=== PATIENT | female | born 1980 | race Two or more races ===

== ENCOUNTER 2017-02-07 13:46 | Emergency (ER) | payer OTHER ==
[2017-02-07 14:19] LABS: #Eosinphils 0.1 thou/uL (0.0-0.7); #Lymphocytes 2.8 thou/uL (1.20-3.40); #Monocytes 0.4 thou/uL (0.11-0.59); #Neutrophils 4.4 thou/uL (1.40-6.50); %Basophils 0.6 % (0.0-1.0); %Eosinophils 1.6 % (0.0-10.0); %Lymphocytes 35.9 % (21.0-51.0); %Monocytes 4.6 % (0.0-10.0); Hematocrit 40.7 % (36.0-47.0); Mean Platelet Volume 7.6 fL (7.4-10.4); Red Blood Cell (RBC) Count 4.39 mill/uL (4.20-5.40); White Blood Cell (WBC) Count 7.7 thou/uL (4.8-10.8)
[2017-02-07 14:41] LABS: ALT (SGPT) 18 U/L (8-55); AST (SGOT) 13 U/L (5-34); Alkaline Phosphatase 39 U/L (40-150); Anion Gap 16 mmol/L (10-20); BUN (Urea Nitrogen) 15 mg/dL (7.0-18.7); Bilirubin, Total 0.2 mg/dL (0.2-1.2); CK (CPK) 134 U/L (29-168); Calc. Creatinine Clearance 0 mL/min (70-130); Calcium 9.5 mg/dL (7.8-10.44); Carbon Dioxide 24 mmol/L (22-29); Chloride 103 mmol/L (98-107); Estimated GFR-MDRD 81; Globulin 3.2 g/dL (2.4-3.5); Protein, Total 7.1 g/dL (6.0-8.3)
[2017-02-07 14:44] LABS: Troponin I Less than 0.010 ng/mL (< 0.028)
--- NOTE | 2017-02-07 17:20 | RAD ---
AP CHEST: History: Chest pain, shortness of breath. Date: 02-07-17 Comparison: 11-16-16 FINDINGS: The lungs are well aerated. No evidence of active intrathoracic disease is seen. No evidence of effu sions, pneumonia, or pneumothorax seen. IMPRESSION: Unremarkable AP chest. POS: [facility]
== END 2017-02-07 16:14 | disposition home or self-care (01) ==
LOC: ERS 13:46
DX: R07.2 Precordial pain (principal); E11.9 Type 2 diabetes mellitus without complications; I10 Essential (primary) hypertension; Z86.73 Personal history of transient ischemic attack (TIA), and cerebral infarction without residual deficits
CPT/HCPCS: 71010; 80053; 82550; 82553; 83880; 84484; 85025; 85379; 93005

== ENCOUNTER 2017-02-22 22:09 | Emergency (ER) | payer OTHER, SELFPAY ==
[2017-02-22] MEDS ORDERED: Ibuprofen 800 MG TAB ONE (23:02)
== END 2017-02-22 23:15 | disposition home or self-care (01) ==
LOC: ERS 22:09
DX: M79.652 Pain in left thigh (principal); E11.9 Type 2 diabetes mellitus without complications; I10 Essential (primary) hypertension; Z86.73 Personal history of transient ischemic attack (TIA), and cerebral infarction without residual deficits; Z79.84 Long term (current) use of oral hypoglycemic drugs; Z79.899 Other long term (current) drug therapy
CPT/HCPCS: 99283

== ENCOUNTER 2017-03-04 17:39 | Emergency (ER) | payer SELFPAY ==
--- NOTE | 2017-03-04 20:20 | ULT ---
VENOUS DOPPLER ULTRASOUND OF THE LEFT LOWER EXTREMITY: HISTORY: Edema in the left lower extremity, anterolateral aspect of the left thigh. TECHNIQUE: Hart scale ultrasound with color-flow and spectral Doppler imaging of the deep venous system of the left lower extremity was performed. FINDINGS: There is good flow, compression, and augmentation noted in the left common femoral, femoral, deep fe moral, popliteal, posterior tibial, and greater saphenous veins. IMPRESSION: No evidence of deep venous thrombosis in the left lower extremity. POS: [facility]
== END 2017-03-04 20:31 | disposition home or self-care (01) ==
LOC: SCSER 17:39
DX: I80.3 Phlebitis and thrombophlebitis of lower extremities, unspecified (principal); Z86.73 Personal history of transient ischemic attack (TIA), and cerebral infarction without residual deficits; E11.9 Type 2 diabetes mellitus without complications; I10 Essential (primary) hypertension

== ENCOUNTER 2017-04-26 21:51 | Emergency (ER) | payer SELFPAY ==
[2017-04-26 22:27] LABS: #Eosinphils 0.1 thou/uL (0.0-0.7); #Lymphocytes 3.9 thou/uL (1.20-3.40); #Monocytes 0.6 thou/uL (0.11-0.59); #Neutrophils 5.3 thou/uL (1.40-6.50); %Basophils 0.2 % (0.0-1.0); %Eosinophils 1.3 % (0.0-10.0); %Lymphocytes 39.6 % (21.0-51.0); %Monocytes 5.6 % (0.0-10.0); Hematocrit 40.4 % (36.0-47.0); Mean Platelet Volume 7.4 fL (7.4-10.4); Red Blood Cell (RBC) Count 4.47 mill/uL (4.20-5.40); White Blood Cell (WBC) Count 9.9 thou/uL (4.8-10.8)
[2017-04-26 22:49] LABS: ALT (SGPT) 18 U/L (8-55); AST (SGOT) 12 U/L (5-34); Alkaline Phosphatase 42 U/L (40-150); Anion Gap 13 mmol/L (10-20); BUN (Urea Nitrogen) 18 mg/dL (7.0-18.7); Bilirubin, Total 0.4 mg/dL (0.2-1.2); Calc. Creatinine Clearance 0 mL/min (70-130); Calcium 9.8 mg/dL (7.8-10.44); Carbon Dioxide 28 mmol/L (22-29); Chloride 98 mmol/L (98-107); Estimated GFR-MDRD 76; Globulin 3.1 g/dL (2.4-3.5); Protein, Total 7.1 g/dL (6.0-8.3)
--- NOTE | 2017-04-26 22:49 | RAD ---
AP CHEST: History: Chest pain. FINDINGS: The lungs are well aerated. No evidence of active intrathoracic disease is seen. No evidence of effus ions, pneumonia or pneumothorax seen. IMPRESSION: Unremarkable AP chest. POS: [facility]
[2017-04-26 22:54] LABS: Troponin I Less than 0.010 ng/mL (< 0.028)
== END 2017-04-27 00:47 | disposition home or self-care (01) ==
LOC: ERS 21:51
DX: R07.89 Other chest pain (principal); E11.9 Type 2 diabetes mellitus without complications; I10 Essential (primary) hypertension; Z86.73 Personal history of transient ischemic attack (TIA), and cerebral infarction without residual deficits
CPT/HCPCS: 36415; 71010; 80053; 82553; 84484; 85025; 93005

== ENCOUNTER 2017-07-25 10:54 | Emergency (ER) | payer OTHER | END 2017-07-25 11:29 | disposition home or self-care (01) | LOC: ERS 10:54 | DX: S39.012A Strain of muscle, fascia and tendon of lower back, initial encounter (principal); E11.9 Type 2 diabetes mellitus without complications; I10 Essential (primary) hypertension; Z86.73 Personal history of transient ischemic attack (TIA), and cerebral infarction without residual deficits; X58.XXXA Exposure to other specified factors, initial encounter | CPT/HCPCS: 99283 ==

== ENCOUNTER 2017-08-06 14:48 | Emergency (ER) | payer OTHER | END 2017-08-06 15:38 | disposition home or self-care (01) | LOC: SCSER 14:48 | DX: K20.9 Esophagitis, unspecified (principal); E11.9 Type 2 diabetes mellitus without complications; I10 Essential (primary) hypertension; F17.210 Nicotine dependence, cigarettes, uncomplicated | CPT/HCPCS: 99284 ==

== ENCOUNTER 2017-08-17 07:47 | Emergency (ER) | payer OTHER ==
[2017-08-17] MEDS ORDERED: Ketorolac Tromethamine 60 MG/2 ML VIAL ONE (08:15)
[2017-08-17 08:19] LABS: Bilirubin Negative (Negative); Blood, Urine Negative (Negative); Clarity CLEAR (Clear); Glucose, Urine (Dipstick) >=1000 mg/dL (Negative); Leukocyte Small (Negative); Nitrite Negative (Negative); Protein, Urine (Dipstick) Negative (Neg-Trace); Specific Gravity, Urine 1.034 (1.002-1.036); pH, Urine 5.5 (5.0-9.0)
[2017-08-17 08:29] LABS: RBC/HPF 0-3 HPF (0-3)
[2017-08-17 08:30] LABS: Bacteria/HPF None Seen HPF (None Seen); Hyaline Casts/LPF 0-3 HYALINE CAST LPF (0-3 Hyaline)
--- NOTE | 2017-08-17 08:48 | RAD ---
LUMBAR SPINE THREE VIEWS: History: Back pain. FINDINGS: There is loss of disc space at L4-5. Degenerative osteophytes are also prominent anteriorly at L4-5. The other disc spaces are preserved. The lumbar vertebrae maintain height and alignment. No evidence of spondylolisthesis or spondylolysis. Moderate facet hypertrophy is noted. IMPRESSION: Degenerative changes most prominent at L4-5 with loss of disc space and hypertrophic spurring at this level. Facet hypertrophy is noted. POS: [facility]
[2017-08-18 01:51] LABS: Chlamydia by PCR Not Detected (NotDetected); GC by PCR Not Detected (NotDetected)
== END 2017-08-17 10:02 | disposition home or self-care (01) ==
LOC: ERS 07:47
DX: S39.012A Strain of muscle, fascia and tendon of lower back, initial encounter (principal); E11.9 Type 2 diabetes mellitus without complications; I10 Essential (primary) hypertension; F17.210 Nicotine dependence, cigarettes, uncomplicated; Z79.899 Other long term (current) drug therapy; Z79.84 Long term (current) use of oral hypoglycemic drugs; Z86.73 Personal history of transient ischemic attack (TIA), and cerebral infarction without residual deficits; X58.XXXA Exposure to other specified factors, initial encounter
CPT/HCPCS: 72100; 81003; 81015; 87077; 87086; 87480; 87491; 87510; 87591; 87660; 96372; J1885

== ENCOUNTER 2018-01-18 17:10 | Emergency (ER) | payer OTHER | END 2018-01-18 18:21 | disposition home or self-care (01) | LOC: ERS 17:10 | DX: B34.9 Viral infection, unspecified (principal); Z86.73 Personal history of transient ischemic attack (TIA), and cerebral infarction without residual deficits; E11.9 Type 2 diabetes mellitus without complications; I10 Essential (primary) hypertension; F17.210 Nicotine dependence, cigarettes, uncomplicated | CPT/HCPCS: 87081; 87430; 87804; 99283 ==

== ENCOUNTER 2018-03-05 19:17 | Emergency (ER) | payer OTHER, SELFPAY ==
[2018-03-05] MEDS ORDERED: Lidocaine 1% (PF) 30 ML VIAL ONE (20:03)
[2018-03-05] MEDS ORDERED: Bacitracin Zinc 1 Packet ONE (20:27)
== END 2018-03-05 20:35 | disposition home or self-care (01) ==
LOC: ERS 19:17
DX: L02.211 Cutaneous abscess of abdominal wall (principal); L03.311 Cellulitis of abdominal wall; Z86.73 Personal history of transient ischemic attack (TIA), and cerebral infarction without residual deficits; E11.9 Type 2 diabetes mellitus without complications; I10 Essential (primary) hypertension; F17.210 Nicotine dependence, cigarettes, uncomplicated; Z79.84 Long term (current) use of oral hypoglycemic drugs; Z79.899 Other long term (current) drug therapy; Z71.6 Tobacco abuse counseling
CPT/HCPCS: 10060; 87070; 87077; 87186; 87205; 99406; J2001

== ENCOUNTER 2018-03-08 18:14 | Emergency (ER) | payer SELFPAY | END 2018-03-08 18:47 | disposition home or self-care (01) | LOC: ERS 18:14 | DX: Z48.817 Encounter for surgical aftercare following surgery on the skin and subcutaneous tissue (principal); E11.9 Type 2 diabetes mellitus without complications; I10 Essential (primary) hypertension; F17.210 Nicotine dependence, cigarettes, uncomplicated; Z79.84 Long term (current) use of oral hypoglycemic drugs; Z79.899 Other long term (current) drug therapy | CPT/HCPCS: 99282 ==

== ENCOUNTER 2018-04-09 21:04 | Emergency (ER) | payer SELFPAY ==
[2018-04-09 22:16] LABS: #Eosinphils 0.1 thou/uL (0.0-0.7); #Lymphocytes 2.7 thou/uL (1.20-3.40); #Monocytes 0.4 thou/uL (0.11-0.59); #Neutrophils 2.7 thou/uL (1.40-6.50); %Basophils 0.6 % (0.0-1.0); %Eosinophils 2.2 % (0.0-10.0); %Monocytes 6.1 % (0.0-10.0); %Neutrophils 45.1 % (42.0-75.0); Hemoglobin 13.1 g/dL (12.0-16.0); Mean Corpuscular HGB CONC 35.9 g/dL (32.0-36.0); Mean Corpuscular Hemoglobin 31.5 pg (27.0-31.0); Mean Corpuscular Volume 87.8 fL (78.0-98.0); Mean Platelet Volume 7.5 fL (7.4-10.4); Platelet Count 280 thou/uL (130-400); RBC Distribution Width 11.8 % (11.5-14.5); Red Blood Cell (RBC) Count 4.15 mill/uL (4.20-5.40); White Blood Cell (WBC) Count 5.9 thou/uL (4.8-10.8)
[2018-04-09 22:38] LABS: ALT (SGPT) 19 U/L (8-55); AST (SGOT) 12 U/L (5-34); Albumin 3.6 g/dL (3.5-5.0); Alkaline Phosphatase 42 U/L (40-150); Anion Gap 15 mmol/L (10-20); BUN (Urea Nitrogen) 10 mg/dL (7.0-18.7); Bilirubin, Total 0.2 mg/dL (0.2-1.2); CK (CPK) 137 U/L (29-168); Calc. Creatinine Clearance 0 mL/min (70-130); Calcium 8.5 mg/dL (7.8-10.44); Carbon Dioxide 23 mmol/L (22-29); Chloride 101 mmol/L (98-107); Estimated GFR-MDRD 78; Globulin 2.7 g/dL (2.4-3.5); Glucose 371 mg/dL (70-105); Lipase 51 U/L (8-78); Potassium 3.6 mmol/L (3.5-5.1); Protein, Total 6.3 g/dL (6.0-8.3); Sodium 135 mmol/L (136-145)
[2018-04-09] MEDS ORDERED: Nitroglycerin 2% Ointment 1 INCH/1 GM Packet ONE (22:39)
[2018-04-09] MEDS ORDERED: Acetaminophen 500 MG TAB ONE (22:39)
[2018-04-09 22:42] LABS: Troponin I Less than 0.010 ng/mL (< 0.028)
--- NOTE | 2018-04-09 22:52 | RAD ---
CHEST ONE VIEW: 04/09/18 COMPARISON: 04/26/17 HISTORY: Chest pain. FINDINGS: Normal cardiac silhouette. Pulmonary vessels and hilum are normal. Costophrenic angles are clear. No mass. No consolidation. No pneumothorax or osseous abnormalities. IMPRESSION: No acute cardiopulmonary process. POS: [facility]
[2018-04-10 01:28] LABS: Troponin I Less than 0.010 ng/mL (< 0.028)
== END 2018-04-10 02:12 | disposition home or self-care (01) ==
LOC: ERS 21:04
DX: I10 Essential (primary) hypertension (principal); F17.210 Nicotine dependence, cigarettes, uncomplicated; E11.9 Type 2 diabetes mellitus without complications; Z71.6 Tobacco abuse counseling; Z86.73 Personal history of transient ischemic attack (TIA), and cerebral infarction without residual deficits; Z79.899 Other long term (current) drug therapy; Z79.4 Long term (current) use of insulin
CPT/HCPCS: 36415; 71045; 80053; 82553; 83690; 84484; 85025; 93005; 94760; 99406

== ENCOUNTER 2018-07-11 10:36 | Emergency (ER) | payer SELFPAY ==
[2018-07-11] MEDS ORDERED: Acetaminophen 325 MG TAB ONE (11:38)
[2018-07-11] MEDS ORDERED: Ibuprofen 200 MG TAB ONE (11:38)
--- NOTE | 2018-07-11 11:41 | RAD ---
CHEST 2 VIEWS: HISTORY: Body aches, chest pain, and fever. COMPARISON: Radiograph 04/09/2018. FINDINGS: The lungs are clear. No pneumothorax or effusion. Cardiac silhouette and mediastinal contours are w ithin normal limits. IMPRESSION: No acute intrathoracic abnormality. POS: [facility]
== END 2018-07-11 12:43 | disposition home or self-care (01) ==
LOC: ERS 10:36
DX: B34.9 Viral infection, unspecified (principal); E11.9 Type 2 diabetes mellitus without complications; I10 Essential (primary) hypertension; F17.210 Nicotine dependence, cigarettes, uncomplicated; Z79.84 Long term (current) use of oral hypoglycemic drugs; Z86.73 Personal history of transient ischemic attack (TIA), and cerebral infarction without residual deficits; Z79.899 Other long term (current) drug therapy
CPT/HCPCS: 71046; 87804; 94640; J7620

== ENCOUNTER 2019-01-23 16:04 | Emergency (ER) | payer SELFPAY ==
[2019-01-23] MEDS ORDERED: Ketorolac Tromethamine 30 MG/ML VIAL ONE (16:40)
--- NOTE | 2019-01-23 18:21 | RAD ---
RIGHT SHOULDER THREE VIEWS: HISTORY: Pain. COMPARISON: None. FINDINGS: No acute fracture. There is a large effusion at the greater tuberosity with calcific tendinosis of t he rotator cuff. The ribs are intact. IMPRESSION: Large erosion of the greater tuberosity with rotator cuff calcific tendinosis. POS: [facility]
== END 2019-01-23 17:00 | disposition home or self-care (01) ==
LOC: SCSER 16:04
DX: M75.31 Calcific tendinitis of right shoulder (principal); Z86.73 Personal history of transient ischemic attack (TIA), and cerebral infarction without residual deficits; E11.9 Type 2 diabetes mellitus without complications; I10 Essential (primary) hypertension; F17.210 Nicotine dependence, cigarettes, uncomplicated
CPT/HCPCS: 96372; J1885

== ENCOUNTER 2019-03-07 22:57 | Emergency (ER) | payer SELFPAY | END 2019-03-07 23:53 | disposition home or self-care (01) | LOC: SCSER 22:57 | DX: H72.92 Unspecified perforation of tympanic membrane, left ear (principal); E11.9 Type 2 diabetes mellitus without complications; I10 Essential (primary) hypertension; F17.210 Nicotine dependence, cigarettes, uncomplicated; Z86.73 Personal history of transient ischemic attack (TIA), and cerebral infarction without residual deficits; Z79.84 Long term (current) use of oral hypoglycemic drugs; Z79.899 Other long term (current) drug therapy | CPT/HCPCS: 99282 ==

== ENCOUNTER 2019-09-29 21:15 | Emergency (ER) | payer OTHER, SELFPAY ==
[2019-09-29] MEDS ORDERED: Acetaminophen 500 MG TAB ONE (21:28)
--- NOTE | 2019-09-30 07:05 | RAD ---
SINGLE VIEW CHEST: HISTORY: Headache and chills. COVID exposure. COMPARISON: 04/09/2018 FINDINGS: A single view of the chest shows an enlarged but stable cardiomediastinal silhouette. There is no marie dence of consolidation, mass or pleural effusion. The bones are unremarkable. IMPRESSION: No evidence of acute cardiopulmonary disease. POS: [facility]
[2019-09-30 16:32] LABS: SARS-CoV-2 MS2 Positive; SARS-CoV-2 N Gene Positive; SARS-CoV-2 S Gene Positive; SARS-CoV-2 orf1ab Positive
== END 2019-09-30 00:14 | disposition home or self-care (01) ==
LOC: ERS 21:15
DX: U07.1 COVID-19 (principal); J06.9 Acute upper respiratory infection, unspecified; R51 Headache; R50.9 Fever, unspecified; R11.2 Nausea with vomiting, unspecified; E11.9 Type 2 diabetes mellitus without complications; I10 Essential (primary) hypertension; Z86.73 Personal history of transient ischemic attack (TIA), and cerebral infarction without residual deficits; F17.210 Nicotine dependence, cigarettes, uncomplicated; Z79.899 Other long term (current) drug therapy; Z79.84 Long term (current) use of oral hypoglycemic drugs
CPT/HCPCS: 71045; 87635; 87804; 96360; U0003

== ENCOUNTER 2019-12-15 21:47 | Emergency (ER) | payer OTHER, SELFPAY ==
[2019-12-15] MEDS ORDERED: HYDROcodone/Acetaminophen 5/325 mg Tablet ONE (22:04)
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
--- NOTE | 2019-12-15 23:16 | RAD ---
EXAM: 2 views of the right humerus HISTORY: right arm pain COMPARISON: None FINDINGS: 2 views of the right humerus shows no evidence of acute fracture or dislocation. Calcificat ion is seen at the insertion of the rotator cuff. No other degenerative changes are seen. No soft tissue swelling is present. IMPRESSION: 1. No evidence of acute osseous abnormality. 2. Rotator cuff calcific tendinopathy
== END 2019-12-15 23:57 | disposition home or self-care (01) ==
LOC: ERS 21:47
DX: S00.83XA Contusion of other part of head, initial encounter (principal); S40.021A Contusion of right upper arm, initial encounter; S60.221A Contusion of right hand, initial encounter; Z86.73 Personal history of transient ischemic attack (TIA), and cerebral infarction without residual deficits; E11.9 Type 2 diabetes mellitus without complications; I10 Essential (primary) hypertension; F17.210 Nicotine dependence, cigarettes, uncomplicated; Z79.84 Long term (current) use of oral hypoglycemic drugs; Z79.51 Long term (current) use of inhaled steroids; Y04.0XXA Assault by unarmed brawl or fight, initial encounter
CPT/HCPCS: 70450; 70486

== ENCOUNTER 2020-01-12 10:12 | Emergency (ER) | payer OTHER ==
[2020-01-13 15:58] LABS: SARS-CoV-2 MS2 Positive; SARS-CoV-2 N Gene Negative; SARS-CoV-2 S Gene Negative; SARS-CoV-2 by NAA Not Detected (NotDetected); SARS-CoV-2 orf1ab Negative
== END 2020-01-12 10:30 | disposition home or self-care (01) ==
LOC: ERS 10:12
DX: B34.9 Viral infection, unspecified (principal); Z20.828 Contact with and (suspected) exposure to other viral communicable diseases; I10 Essential (primary) hypertension; E11.9 Type 2 diabetes mellitus without complications; F17.210 Nicotine dependence, cigarettes, uncomplicated; Z86.73 Personal history of transient ischemic attack (TIA), and cerebral infarction without residual deficits
CPT/HCPCS: 87635; 87804; 99283; U0003

== ENCOUNTER 2020-03-20 12:11 | Emergency (ER) | payer OTHER, SELFPAY ==
[2020-03-20 18:21] LABS: SARS-CoV-2 MS2 Positive; SARS-CoV-2 N Gene Negative; SARS-CoV-2 S Gene Negative; SARS-CoV-2 by NAA Not Detected (NotDetected); SARS-CoV-2 orf1ab Negative
== END 2020-03-20 13:05 | disposition home or self-care (01) ==
LOC: ERS 12:11
DX: R50.9 Fever, unspecified (principal); Z20.828 Contact with and (suspected) exposure to other viral communicable diseases
CPT/HCPCS: 87635; 99283; U0003

== ENCOUNTER 2020-03-21 23:05 | Inpatient (IN) | payer MEDICAID, SELFPAY ==
[2020-03-21] MEDS ORDERED: cefTRIAXone\\ROCEPHIN 2 GM VIAL ONE (23:48)
[2020-03-21] MEDS ORDERED: Acetaminophen 500 MG TAB ONE (23:48)
[2020-03-21 23:52] LABS: Hemoglobin 14.1 g/dL (12.0-16.0); Mean Corpuscular HGB CONC 34.9 g/dL (32.0-36.0); Mean Corpuscular Hemoglobin 31.5 pg (27.0-31.0); Mean Corpuscular Volume 90.3 fL (78.0-98.0); Mean Platelet Volume 8.1 fL (7.4-10.4); Platelet Count 235 thou/uL (130-400); RBC Distribution Width 11.5 % (11.5-14.5); Red Blood Cell (RBC) Count 4.48 mill/uL (4.20-5.40); White Blood Cell (WBC) Count 12.8 thou/uL (4.8-10.8)
--- NOTE | 2020-03-21 23:53 | RAD ---
EXAM: CHEST ONE VIEW HISTORY: Fever. COMPARISON: 09/29/2019 FINDINGS: Cardiac silhouette is magnified by projection stable in size. The pulmonary vasculature is within nor mal limits. The lungs are clear. No interval change from prior study. IMPRESSION: No acute cardiopulmonary process.
[2020-03-21 23:56] LABS: Bilirubin Negative (Negative); Blood, Urine Trace (Negative); Glucose, Urine (Dipstick) >=1000 mg/dL (Negative); Ketone, Urine Trace mg/dL (Negative); Leukocyte Negative (Negative); Nitrite Negative (Negative); Protein, Urine (Dipstick) Trace mg/dL (Neg-Trace); Urobilinogen 0.2 mg/dL (Less than 2)
[2020-03-22 00:01] LABS: ALT (SGPT) 16 U/L (8-55); AST (SGOT) 12 U/L (5-34); Albumin 3.6 g/dL (3.5-5.0); Alkaline Phosphatase 50 U/L (40-110); Anion Gap 14 mmol/L (10-20); BUN (Urea Nitrogen) 11 mg/dL (7.0-18.7); Bilirubin, Total 0.3 mg/dL (0.2-1.2); Calc. Creatinine Clearance 0 mL/min (70-130); Calcium 8.6 mg/dL (7.8-10.44); Carbon Dioxide 22 mmol/L (22-29); Chloride 105 mmol/L (98-107); Estimated GFR-MDRD 78; Globulin 3.2 g/dL (2.4-3.5); Glucose 295 mg/dL (70-105); Potassium 3.9 mmol/L (3.5-5.1); Protein, Total 6.8 g/dL (6.0-8.3); Sodium 137 mmol/L (136-145)
[2020-03-22 00:35] LABS: Clarity Clear (Clear)
[2020-03-22 01:12] LABS: Bacteria/HPF Rare-Few HPF (None Seen); RBC/HPF 0-3 HPF (0-3); Squamous Epithelial 0-3 HPF (0-3)
[2020-03-22 01:26] LABS: Band 20 % (5-11); Eosinophils 2 % (0-10); Lymphocytes 10 % (21-51); MDiff Complete? YES; Monocytes 6 % (0-10); Neutrophil 60 % (42-75); Reactive Lymphocytes 2 % (0-10)
[2020-03-22 01:45] LABS: Pregnancy Test - Urine (BHCG) Negative (Negative)
[2020-03-22 01:46] LABS: Pregu Control Background? CLEAR/WHITE (CLR/WHITE); Pregu Control Bar Appear? YES (CONTROL BAR)
[2020-03-22] MEDS ORDERED: Ampicillin/Sulbactam 1.5 GM in Sodium Chloride 0.9% 100 ML IVPB SCH (03:30)
[2020-03-22] MEDS ORDERED: Metoclopramide HCl 10 MG/2 ML VIAL ONE (03:30)
[2020-03-22] MEDS ORDERED: Ketorolac Tromethamine 30 MG/ML VIAL ONE (03:30)
[2020-03-22] MEDS ORDERED: diphenhydrAMINE 50 MG/ML VIAL ONE (03:30)
[2020-03-22] MEDS ORDERED: diphenhydrAMINE 50 MG CAP ONE (03:30)
[2020-03-22] MEDS ORDERED: Labetalol HCl 100 MG/20 ML VIAL ONE (03:55)
[2020-03-22] MEDS ORDERED: Morphine 2 MG/ML SYRINGE SLOW IVP PRN (05:23)
[2020-03-22] MEDS ORDERED: Metoprolol Tartrate 5 MG/5 ML VIAL IVP PRN (05:24)
[2020-03-22] MEDS ORDERED: Dextrose 50% Abboject 50 ML SYRINGE SLOW IVP PRN (05:24)
[2020-03-22] MEDS ORDERED: Dextrose 5% in Water 1,000 ML IV PRN (05:24)
[2020-03-22] MEDS ORDERED: Ondansetron PF 4 MG/2 ML Vial IVP PRN (05:25)
--- NOTE | 2020-03-22 06:10 | HP ---
REASON FOR ADMISSION: Abdominal pain. HISTORY OF PRESENT ILLNESS: This is a 40-year-old female patient, who is presenting with abdominal pain, history going back to the night of her presentation. She developed right lower quadrant pain with increased temperature and chills. The pain is described as achy like in nature. She did report having alternating constipation and diarrhea for the past week. She denies bloody stools. She is known to have high blood pressure and diabetes, but has not taken her medications in the past month. In the ER, she was found to be hypertensive and her glycemic levels were found to be elevated. When I saw her, she continued to report abdominal pain and chills. PAST MEDICAL HISTORY: 1. Hypertension. 2. Diabetes. 3. High cholesterol. SOCIAL HISTORY: She drinks and smokes occasionally. She uses weed occasionally. FAMILY HISTORY: Positive for diabetes. PAST SURGICAL HISTORY: Appendectomy. REVIEW OF SYSTEMS: All systems reviewed except the above mentioned, found to be negative. PHYSICAL EXAMINATION: GENERAL: Awake, alert, oriented, does not appear in distress. VITAL SIGNS: Her blood pressure is 180/111, pulse of 92, and saturating 97% on room air. HEENT: Head is nontraumatic, normocephalic. Pupils are equal, reactive. Extraocular movements are intact. Nonicteric sclerae. Well injected conjunctivae. Oral mucosa normal. Nasal mucosa normal. NECK: Supple. No adenopathy. No murmur. Thyroid is not palpable. Trachea is midline. No supraclavicular lymphadenopathy. HEART: S1 and S2 regular. No murmur. No gallops. No friction rubs. No displacement of PMI. LUNGS: Clear to auscultation bilaterally. No wheezes, rhonchi, or crackles. Bowel sounds are positive. Tenderness on palpation of the right lower quadrant area, but overall the abdomen is soft. EXTREMITIES: No lower extremity edema. No cyanosis. NEUROLOGIC: Cranial nerves 2 through 12 within normal limits. Normal motor function. Normal sensory function and reflexes. LABORATORY DATA: Blood work shows WBC of 12.8, hemoglobin 14.1, platelets 235, bands of 20%. Sodium 137, potassium 3.9, BUN 11, creatinine 0.82, glucose 295. Lactic acid 1.3. CAT scan of the abdomen shows fat stranding in the right lower quadrant area could be representing an infectious process. ASSESSMENT AND PLAN: This is a 40-year-old female patient presenting with abdominal pain and fever. Most likely, she has colitis. She also is noncompliant with her blood pressure medications and her diabetes medication. Her blood pressure is elevated and her glucose is not well controlled. GI; the patient has colitis. She will be on IV Zosyn, and keep her n.p.o. We will have her on IV fluids. We will provide her with morphine for pain control. For her diabetes, she will be on insulin sliding scale. For her high blood pressure, we will have her on IV Lopressor on as needed basis. For deep venous thrombosis prophylaxis, she will be on Lovenox. Job ID: [id number]
[2020-03-22 06:20] VITALS: BMI 36.6
[2020-03-22] MEDS: Sodium Chloride 0.9% 1,000 ML IV SCH ×2 (06:40→17:24)
[2020-03-22] MEDS: Acetaminophen 325 MG TAB PO PRN ×4 (06:40→23:22)
[2020-03-22] MEDS: Piperacillin/Tazobactam 4.5 GM in Sodium Chloride 0.9% 100 ML IVPB SCH ×4 (06:40→23:14)
--- NOTE | 2020-03-22 08:37 | CT ---
PRELIMINARY REPORT/[facility]/EMERGENCY AFTER HOURS PROCEDURE: EXAM: CT Abdomen and Pelvis with Intravenous Contrast CLINICAL HISTORY: PT REPORTS AWAITING COVID-19 RESULTS, REPORTS FEVER, ABD PAIN TECHNIQUE: Axial computed tomography images of the abdomen and pelvis with intravenous contrast. CONTRAST: With; ISOVUE 370,100mL COMPARISON: None provided. FINDINGS: LUNG BASES: No basilar airspace consolidation or pleural effusion. LIVER: The liver is enlarged measuring 23 cm in length. The liver is hypoenhancing. GALLBLADDER AND BILE DUCTS: Unremarkable. No calcified stone. No ductal dilation. PANCREAS: Unremarkable. SPLEEN: Unremarkable. ADRENAL GLANDS: Unremarkable. KIDNEYS, URETERS, AND BLADDER: Unremarkable. No hydronephrosis or nephrolithiasis. No ureteral or bladder calculi. STOMACH AND BOWEL: No obstruction. No wall thickening. No CT evidence of colitis or acute diverticulitis. APPENDIX: The appendix is nonvisualized and may be surgically absent. Fat stranding adjacent to the cecum. PERITONEUM: No free fluid. No free air. LYMPH NODES: No lymphadenopathy. REPRODUCTIVE: Unremarkable as visualized. VASCULATURE: No aortic aneurysm. BONES: No fracture or suspicious osseous abnormality. ABDOMINAL WALL AND SOFT TISSUES: Unremarkable. IMPRESSION: Fat stranding in the right lower quadrant. This may represent scarring although an infectious proces s of indeterminate etiology cannot be excluded. The appendix is not visualized and may be surgically absent. Clinical correlation is recommended. Hepatomegaly with fatty infiltration. ELECTRONICALLY SIGNED BY: Chad Puckett MD Mar 22, 2020 2:30:22 AM PROCESS COACH This report is intended for review by the ordering physician only, in accordance of law. If you recei ve this report in error, please call [facility] at [phone]. FINAL REPORT EMERGENCY AFTER HOURS CT ABDOMEN AND PELVIS PERFORMED WITH IV CONTRAST ENHANCEMENT: Date: 03/22/2020 HISTORY: Right lower quadrant pain. Patient does have a history of appendectomy. COMPARISON: 03/31/2013 exam and a 05/31/2015 study. FINDINGS: The lung bases are clear. Liver is enlarged and shows fatty change. Liver measures 22 cm in length. Spleen is within normal jara its in size. Pancreas and gallbladder regions are unremarkable. Right and left adrenal glands, and right and left kidneys are normal. There is no significant periaor tic adenopathy. CT of pelvis was performed with contrast enhancement. There are some mildly prominent ileocolic lymph nodes present. Associated with this is some fat stranding in this region. The patient does have a hi story of an appendectomy and I do not see any definite signs of an appendix. The fat stranding is not definitely centered around the terminal ileum such as what would be seen in inflammatory bowel disea se. It is difficult to assess the colon wall in this area due to underdistention. I do not see any pn eumatosis and the fat stranding is more medial. There is no pelvic lymphadenopathy or mass. Follicles are seen involving the adnexa. IMPRESSION: 1. Fat stranding in the right lower quadrant, mainly medial to the colon and associated with some pr ominent ileocolic lymph nodes. Etiology of this is unclear. It is not definitely centered around the terminal ileum to suggest inflammatory bowel disease or definitely centered around the colon to sugge st a colitis, but either of these would still be a consideration. Clinical correlation as to patient' s symptoms would be recommended and colonoscopy would be a consideration. 2. Enlarged liver with some fatty change. Report in agreement with the preliminary report issued by [facility]. POS: [facility]
[2020-03-22] MEDS: Enoxaparin Sodium 40 MG/0.4 ML SYRINGE SC SCH (08:57)
[2020-03-22 09:13] LABS: #Lymphocytes 1.3 thou/uL (1.20-3.40); #Monocytes 0.5 thou/uL (0.11-0.59); #Neutrophils 7.4 thou/uL (1.40-6.50); %Basophils 0.4 % (0.0-1.0); %Eosinophils 0.2 % (0.0-10.0); %Lymphocytes 13.9 % (21.0-51.0); %Monocytes 5.1 % (0.0-10.0); %Neutrophils 80.5 % (42.0-75.0); Hemoglobin 12.7 g/dL (12.0-16.0); Mean Corpuscular Hemoglobin 30.9 pg (27.0-31.0); Mean Corpuscular Volume 90.7 fL (78.0-98.0); Mean Platelet Volume 7.9 fL (7.4-10.4); Platelet Count 216 thou/uL (130-400); RBC Distribution Width 11.4 % (11.5-14.5); White Blood Cell (WBC) Count 9.2 thou/uL (4.8-10.8)
[2020-03-22 09:27] LABS: Anion Gap 11 mmol/L (10-20); BUN (Urea Nitrogen) 8 mg/dL (7.0-18.7); Calc. Creatinine Clearance 188 mL/min (70-130); Calcium 7.9 mg/dL (7.8-10.44); Carbon Dioxide 23 mmol/L (22-29); Chloride 108 mmol/L (98-107); Estimated GFR-MDRD Greater than 90; Glucose 184 mg/dL (70-105); Potassium 3.2 mmol/L (3.5-5.1); Sodium 139 mmol/L (136-145)
[2020-03-22] MEDS ORDERED: Iopamidol-370 76% 500 ML 1 ML ONE (13:52)
[2020-03-22] MEDS ORDERED: metFORMIN 500 MG TAB PO SCH (17:00)
[2020-03-22] MEDS: HumaLOG 300 UNITS/3 ML VIAL SC PRN (17:25)
[2020-03-23] MEDS: Sodium Chloride 0.9% 1,000 ML IV SCH ×2 (02:51→11:56)
[2020-03-23] MEDS: Lisinopril/Hydrochlorothiazide 10 mg/12.5 mg Tablet PO SCH (05:11)
[2020-03-23] MEDS: Piperacillin/Tazobactam 4.5 GM in Sodium Chloride 0.9% 100 ML IVPB SCH ×2 (05:12→11:54)
[2020-03-23] MEDS: HumaLOG 300 UNITS/3 ML VIAL SC PRN ×2 (05:12→17:29)
[2020-03-23 05:46] LABS: #Basophils 0.1 thou/uL (0.0-0.2); #Eosinphils 0.1 thou/uL (0.0-0.7); #Lymphocytes 1.7 thou/uL (1.20-3.40); #Monocytes 0.5 thou/uL (0.11-0.59); #Neutrophils 2.8 thou/uL (1.40-6.50); %Basophils 1.1 % (0.0-1.0); %Eosinophils 2.6 % (0.0-10.0); %Lymphocytes 32.4 % (21.0-51.0); %Monocytes 9.2 % (0.0-10.0); %Neutrophils 54.7 % (42.0-75.0); Hemoglobin 12.1 g/dL (12.0-16.0); Mean Corpuscular HGB CONC 34.9 g/dL (32.0-36.0); Mean Corpuscular Hemoglobin 32.1 pg (27.0-31.0); Mean Corpuscular Volume 91.9 fL (78.0-98.0); Mean Platelet Volume 7.8 fL (7.4-10.4); Platelet Count 222 thou/uL (130-400); RBC Distribution Width 11.4 % (11.5-14.5); Red Blood Cell (RBC) Count 3.78 mill/uL (4.20-5.40); White Blood Cell (WBC) Count 5.2 thou/uL (4.8-10.8)
[2020-03-23 06:08] LABS: Anion Gap 11 mmol/L (10-20); BUN (Urea Nitrogen) 7 mg/dL (7.0-18.7); Calc. Creatinine Clearance 183 mL/min (70-130); Carbon Dioxide 25 mmol/L (22-29); Chloride 108 mmol/L (98-107); Estimated GFR-MDRD Greater than 90; Glucose 224 mg/dL (70-105); Potassium 3.7 mmol/L (3.5-5.1); Sodium 140 mmol/L (136-145)
[2020-03-23] MEDS ORDERED: Dicyclomine 10 MG CAP PO PRN (07:47)
[2020-03-23] MEDS: Enoxaparin Sodium 40 MG/0.4 ML SYRINGE SC SCH (07:54)
[2020-03-23] MEDS: Acetaminophen 325 MG TAB PO PRN ×4 (07:55→21:02)
[2020-03-23] MEDS: Amlodipine 10 MG TAB PO SCH (07:56)
[2020-03-23] MEDS: Saccharomyces boulardii 250 MG CAP PO SCH (09:50)
--- NOTE | 2020-03-23 14:24 | EKG ---
Test Reason : Blood Pressure : / mmHG Vent. Rate : 109 BPM Atrial Rate : 109 BPM P-R Int : 158 ms QRS Dur : 074 ms QT Int : 324 ms P-R-T Axes : 061 050 039 degrees QTc Int : 436 ms Sinus tachycardia Possible Left atrial enlargement Septal infarct , age undetermined Abnormal ECG Confirmed by JEFFRY DOVER DO ([id number]), editorial intern MAULIK BLOOM ([id number]) on 03/23/2020 2:24:30 PM Referred By: Confirmed By:JEFFRY DOVER DO
[2020-03-23] MEDS ORDERED: Enalaprilat Dihydrate 1.25 MG/ML VIAL SLOW IVP PRN (16:58)
[2020-03-23] MEDS ORDERED: Labetalol HCl 100 MG/20 ML VIAL SLOW IVP PRN (16:58)
[2020-03-23] MEDS ORDERED: glipiZIDE 5 MG TAB PO SCH (17:00)
[2020-03-23] MEDS ORDERED: Lisinopril 10 MG TAB PO SCH (17:00)
--- NOTE | 2020-03-23 18:51 | PDOC.HOSPP ---
- Subjective Encounter Date: 03/23/20 Encounter Time: 12:30 Subjective: Patient seen and examined for acute gastroenteritis suspected due to Campylobacter. Abdominal pain improving. Diarrhea is slowing down. Denies any nausea. - Objective Vital Signs & Weight: Vital Signs (12 hours) Temp Pulse Resp BP BP Pulse Ox 03/23/20 17:27 170/95 H 03/23/20 16:50 99.2 F 75 16 170/95 H 97 03/23/20 14:29 141/81 H 03/23/20 11:48 98.9 F 71 16 164/100 H 97 03/23/20 07:59 99 03/23/20 07:56 66 135/77 03/23/20 07:47 99.0 F 66 16 135/77 99 Weight Weight 234 lb I&O: 03/22/20 03/23/20 03/24/20 06:59 06:59 06:59 Intake Total 100 3700 1600 Balance 100 3700 1600 Result Diagrams: 03/23/20 05:20 03/23/20 05:20 Additional Labs: Accuchecks 03/23/20 03/22/20 05:00 20:36 POC Glucose 232 H 213 H Abnormal Lab Results - Last 48 hrs 03/22/20 08:45: Potassium 3.2 L, Chloride 108 H 03/22/20 08:45: RBC 4.10 L, RDW 11.4 L, Neutrophils % 80.5 H, Lymphocytes % 13.9 L, Neutrophils # 7.4 H 03/23/20 05:20: Chloride 108 H 03/23/20 05:20: RBC 3.78 L, Hct 34.8 L, MCH 32.1 H, RDW 11.4 L, Basophils % 1.1 H Microbiology - Entire Visit 03/21/20 23:53 Venous blood - Left Arm Blood Culture - Preliminary Gram Negative Patrick 03/21/20 23:45 Urine clean catch Urine Culture - Final 03/21/20 23:53 Venous blood - Right Arm Blood Culture - Preliminary Gram Negative Patrick 03/22/20 13:58 Stool Stool Culture - Preliminary 03/22/20 13:58 Stool Escherichia coli 0157 Culture - Final 03/22/20 13:58 Stool C. difficile GDH Antigen & Toxins - Final 03/22/20 13:58 Stool Stool Lactoferrin - Final 03/22/20 13:58 Stool Campylobacter Antigen Assay - Final 03/22/20 13:58 Stool Shiga Toxin Test - Final Radiology Reviewed by me: Yes (CT abdomencolitis) Hospitalist ROS - Review of Systems Respiratory: denies: cough, dry, shortness of breath, hemoptysis, SOB with excertion, pleuritic pain, sputum, wheezing, other Cardiovascular: denies: chest pain, palpitations, orthopnea, paroxysmal noc. dyspnea, edema, light headedness, other - Medication Medications: Active Medications Generic Name Dose Route Start Last Admin Trade Name Freq PRN Reason Stop Dose Admin Acetaminophen 650 mg 03/22/20 05:32 03/23/20 17:28 Acetaminophen 325 Mg Tab PO 650 mg Q4H PRN Administration Headache/Fever/Mild Pain (1-3) Amlodipine Besylate 10 mg 03/23/20 09:00 03/23/20 07:56 Amlodipine 10 Mg Tab PO 10 mg DAILY JJ Administration Enoxaparin Sodium 40 mg 03/22/20 09:00 03/23/20 07:54 Enoxaparin Sodium 40 Mg/0.4 Ml Syringe SC Not Given 0900 JJ Glipizide 5 mg 03/23/20 17:00 03/23/20 17:27 Glipizide 5 Mg Tab PO 03/23/20 19:00 5 mg NOW JJ Administration Lisinopril/HCTZ 1 tab 03/23/20 09:00 03/23/20 05:11 Lisinopril/Hydrochlorothiazide 10 Mg/12.5 Mg Tablet PO 1 tab DAILY JJ Administration Levofloxacin 500 mg/ Device 100 mls @ 100 mls/hr 03/23/20 14:00 03/23/20 14:23 IVPB 100 mls Q24HR JJ Administration Insulin Human Lispro 0 units 03/22/20 05:24 03/23/20 17:29 Humalog 300 Units/3 Ml Vial SC 4 unit .MODERATE SLIDING SC PRN Administration Moderate Correctional Scale Lisinopril 10 mg 03/23/20 17:00 03/23/20 17:27 Lisinopril 10 Mg Tab PO 03/23/20 19:00 10 mg NOW JJ Administration Metformin HCl 1,000 mg 03/22/20 17:00 03/22/20 17:25 Metformin 500 Mg Tab PO 1,000 mg BID-WM JJ Administration Ondansetron HCl 4 mg 03/22/20 05:25 03/23/20 07:56 Ondansetron Pf 4 Mg/2 Ml Vial IVP 4 mg Q6H PRN Administration Nausea/Vomiting Saccharomyces Boulardii 250 mg 03/23/20 09:00 03/23/20 09:50 Saccharomyces Boulardii 250 Mg Cap PO 250 mg DAILY JJ Administration Sodium Chloride 10 ml 03/23/20 09:00 03/23/20 10:35 Flush - Normal Saline 10 Ml Syringe IVF Not Given Q12HR JJ - Exam General Appearance: NAD Neck: supple, no JVD Heart: RRR, no gallops Respiratory: no wheezes, no ronchi Gastrointestinal: soft, normal bowel sounds, no guarding, no rigidity Gastrointestinal - other findings: Mild tenderness in the right lower quadrant Extremities: no cyanosis, no clubbing Neurological: no new deficit Psychiatric: normal affect, A&O x 3 Hosp A/P - Plan DVT proph w/lovenox, DVT proph w/SCDs Sepsis due to Campylobacter gastroenteritis with bacteremiaPOA Hypokalemia Dehydration Obesity with a BMI 36.6 Hypertension Diabetes mellitus type 2 History of COVID-19 Plan: Will change IV Zosyn to Levaquin. Await sensitivities on the blood culture Case discussed with gastroenterology. Add probiotics. Hold Metformin due to abdominal cramping. Add low-dose glipizide. Potassium replaced. Continue Lovenox for DVT prophylaxis. Ambulate. DC home probably in 1 to 2 days once blood cultures are back. Start low fiber diet
[2020-03-24] MEDS ORDERED: diphenhydrAMINE 25 MG CAP PO PRN (01:40)
--- NOTE | 2020-03-24 04:43 | CON ---
DATE OF CONSULTATION: HISTORY OF PRESENT ILLNESS: Ms. Martinez is admitted for fever and abdominal CAT scan showing some thickening in the right colon. I have been asked to see her because her stool came back positive for Campylobacter and she has blood culture that just came back for a gram-negative marixa. Ms. Martinez notes that she began to feel ill on Wednesday. She had high fever. She came to this hospital to be checked for coronavirus, although she has had it once before already. She reports she was negative, went home. She continued to have fevers and then sometime , she had a fever as high as 102 with chills and rigors. She began to have some loose stools three or four times a day, just not quite as formed as usual and foul smelling. Yesterday, she had persistent fever and began having diarrhea, it is a little bit more watery about twice an hour with severe cramping. She ultimately came to the hospital. She had a CAT scan that showed a little bit of fat stranding and inflammation in the right lower quadrant. cecal area some adenopathy as well. She had a blood culture that showed gram-negative rods. Clostridium difficile was negative, lactoferrin positive, Campylobacter antigen positive. Enteroinvasive E coli negative. Stool culture pending. There were rare gram-positive enteric tho on the culture 24 hours and no Gram negatives. Presently, she is feeling better and just went to a regular diet. She apparently was going to be discharged home, but when her blood culture came back positive, they decided to hold her until that was identified. PAST HISTORY: Hypertension, diabetes. Prior history of COVID. PAST SURGICAL HISTORY: Appendectomy, section. ALLERGIES: NONE KNOWN. MEDICATIONS: At home: Metformin, lisinopril/hydrochlorothiazide, levofloxacin, and amlodipine. Present medications. She was started on Zosyn in the emergency room; Norvasc; Lovenox; insulin sliding scale; levofloxacin 500 mg daily now; metformin 1000 b.i.d., is on hold; lisinopril 1 daily, 02/25.5; p.r.n. morphine; p.r.n. Zofran; and p.r.n., Lopressor. FAMILY HISTORY: Diabetes. No history of inflammatory bowel disease or Crohn's. REVIEW OF SYSTEMS: Negative for rashes, myalgia, or arthralgias. Negative for dysuria, frequency, or urgency. Negative for shortness of breath or cough. PHYSICAL EXAMINATION: VITAL SIGNS: Temperature is 99, blood pressure 164/100, respirations 16, and pulse 71. HEENT: Oropharynx, no lesions. NECK: Supple without any adenopathy. LUNGS: Clear. HEART: Regular rate and rhythm, without clicks or murmurs. ABDOMEN: Soft and nontender. LABORATORIES: White count was 12.8 on admission on 03/21, 5.2 today; hemoglobin 14.3, was 12.1 today; platelet count was 235, is 222 today. Sodium 140, potassium 3.7, BUN and creatinine 7 and 0.7. On admission she had normal liver function tests. COVID test was negative on admission. CT scan films reviewed without oral contrast . There is some edema in the mesenteric fat in the right abdomen just medial to the ascending colon. Radiologist felt there was also a mildly enlarged lymph node in the right lower quadrant as well. ASSESSMENT: Fever since Wednesday with development of diarrhea and then CAT scan shows inflammation in the terminal ileum, right colic area, she has a stool that shows Campylobacter and a positive blood culture for gram-negative now. She is feeling much better than when she came in. Hospitalist recently changed her antibiotics from Zosyn to Levaquin. RECOMMENDATIONS: 1. I agree with holding the patient until ID on the positive blood cultures. Obtain sensitivity. I would continue the Levaquin, that should cover her Campylobacter fine. If there is concern about the Gram negatives and giving more broad coverage, the Zosyn would be fine to continue. We will defer that to Internal Medicine. 2. Agree with advancing diet as tolerated. We will follow along with you. Job ID: [id number]
[2020-03-24] MEDS: HumaLOG 300 UNITS/3 ML VIAL SC PRN ×3 (06:50→17:30)
[2020-03-24] MEDS: Saccharomyces boulardii 250 MG CAP PO SCH (08:05)
[2020-03-24] MEDS: glipiZIDE 5 MG TAB PO SCH (08:05)
[2020-03-24] MEDS: Lisinopril/Hydrochlorothiazide 10 mg/12.5 mg Tablet PO SCH (08:05)
[2020-03-24] MEDS: Amlodipine 10 MG TAB PO SCH (08:06)
[2020-03-24] MEDS: Enoxaparin Sodium 40 MG/0.4 ML SYRINGE SC SCH (08:07)
[2020-03-24] MEDS ORDERED: Magnesium Sulfate 2 GM in Sodium Chloride 0.9% 100 ML IVPB SCH (08:45)
[2020-03-24] MEDS: Magnesium Chloride 64 MG TAB PO SCH ×2 (09:41→20:18)
--- NOTE | 2020-03-24 11:13 | PRG ---
DATE OF SERVICE: 03/24/2020 SUBJECTIVE: Ms. Martinez feels well. She has no abdominal pain. Her diarrhea is improving. She had no fever overnight, sweats, or chills. She has a little bit of back pain and attributes that to lying in bed. OBJECTIVE: VITAL SIGNS: Temperature is 97.5, pulse 67, blood pressure 167/85. ABDOMEN: Soft and nontender. There is no rebound. There is no guarding. LABORATORY DATA: White count 5.2, hemoglobin 12, and platelet count 222 yesterday. Today, no chemistries. Glucose is 195. Blood culture grew positive for gram-negative rods x2. ID pending. C diff negative. Stool positive for lactoferrin and positive for Campylobacter. Enteroinvasive E coli negative. ASSESSMENT: Gram-negative bacteremia, possibly related to gastroenteritis. Stool did show Campylobacter, although she did not have a classic enteritis symptoms just with mild diarrhea and right lower quadrant pain, but this is definitely within the realm of known clinical presentations of Campylobacter. RECOMMENDATIONS: 1. We will continue IV antibiotics in-house until the sensitivities are back on the culture as sometimes there is some resistance to the fluoroquinolones. 2. We would advance diet. Job ID: [id number]
[2020-03-24] MEDS: Acetaminophen 325 MG TAB PO PRN ×2 (12:23→20:18)
--- NOTE | 2020-03-24 18:47 | PDOC.HOSPP ---
- Subjective Encounter Date: 03/24/20 Encounter Time: 15:00 Subjective: Patient seen and examined for sepsis. Abdominal pain improving. Denies any nausea or diarrhea. No fever or chills reported. Feels generally weak with some malaise. - Objective Vital Signs & Weight: Vital Signs (12 hours) Temp Pulse Resp BP BP Pulse Ox 03/24/20 15:52 98.8 F 79 20 153/88 H 100 03/24/20 13:48 98.6 F 03/24/20 11:00 99.1 F 72 20 160/92 H 98 03/24/20 08:13 98 03/24/20 08:06 67 167/85 H 03/24/20 08:05 67 165/85 H 03/24/20 07:28 97.5 F L 67 20 167/85 H 98 Weight Weight 234 lb I&O: 03/23/20 03/24/20 03/25/20 06:59 06:59 06:59 Intake Total 3700 1600 Balance 3700 1600 Result Diagrams: 03/23/20 05:20 03/23/20 05:20 Additional Labs: Accuchecks 03/24/20 03/24/20 03/24/20 15:49 11:19 05:08 POC Glucose 201 H 193 H 195 H 03/23/20 20:12 POC Glucose 113 H Abnormal Lab Results - Last 48 hrs 03/23/20 05:20: Chloride 108 H 03/23/20 05:20: RBC 3.78 L, Hct 34.8 L, MCH 32.1 H, RDW 11.4 L, Basophils % 1.1 H Microbiology - Entire Visit 03/22/20 13:58 Stool Stool Culture - Final 03/22/20 13:58 Stool Escherichia coli 0157 Culture - Final 03/21/20 23:53 Venous blood - Right Arm Blood Culture - Preliminary Gram Negative Patrick 03/21/20 23:53 Venous blood - Left Arm Blood Culture - Preliminary Gram Negative Patrick 03/21/20 23:45 Urine clean catch Urine Culture - Final 03/22/20 13:58 Stool C. difficile GDH Antigen & Toxins - Final 03/22/20 13:58 Stool Stool Lactoferrin - Final 03/22/20 13:58 Stool Campylobacter Antigen Assay - Final 03/22/20 13:58 Stool Shiga Toxin Test - Final Radiology Reviewed by me: Yes (CT abd - reviewed) Hospitalist ROS - Review of Systems Respiratory: denies: cough, dry, shortness of breath, hemoptysis, SOB with excertion, pleuritic pain, sputum, wheezing, other Cardiovascular: denies: chest pain, palpitations, orthopnea, paroxysmal noc. dyspnea, edema, light headedness, other Gastrointestinal: denies: nausea, vomiting, abdominal pain, diarrhea, constipation, melena, hematochezia, other - Medication Medications: Active Medications Generic Name Dose Route Start Last Admin Trade Name Freq PRN Reason Stop Dose Admin Acetaminophen 650 mg 03/22/20 05:32 03/24/20 12:23 Acetaminophen 325 Mg Tab PO 650 mg Q4H PRN Administration Headache/Fever/Mild Pain (1-3) Amlodipine Besylate 10 mg 03/23/20 09:00 03/24/20 08:06 Amlodipine 10 Mg Tab PO 10 mg DAILY JJ Administration Diphenhydramine HCl 25 mg 03/24/20 01:40 03/24/20 01:57 Diphenhydramine 25 Mg Cap PO 25 mg Q6H PRN Administration Itching & Insomnia Enoxaparin Sodium 40 mg 03/22/20 09:00 03/24/20 08:07 Enoxaparin Sodium 40 Mg/0.4 Ml Syringe SC Not Given 0900 JJ Glipizide 5 mg 03/24/20 07:30 03/24/20 08:05 Glipizide 5 Mg Tab PO 5 mg DAILY-AC JJ Administration Lisinopril/HCTZ 1 tab 03/23/20 09:00 03/24/20 08:05 Lisinopril/Hydrochlorothiazide 10 Mg/12.5 Mg Tablet PO 1 tab DAILY JJ Administration Levofloxacin 500 mg/ Device 100 mls @ 100 mls/hr 03/23/20 14:00 03/24/20 13:44 IVPB 100 mls Q24HR JJ Administration Insulin Human Lispro 0 units 03/22/20 05:24 03/24/20 17:30 Humalog 300 Units/3 Ml Vial SC 4 unit .MODERATE SLIDING SC PRN Administration Moderate Correctional Scale Magnesium Chloride 64 mg 03/24/20 09:00 03/24/20 09:41 Magnesium Chloride 64 Mg Tab PO 64 mg BID JJ Administration Metformin HCl 1,000 mg 03/22/20 17:00 03/22/20 17:25 Metformin 500 Mg Tab PO 1,000 mg BID-WM JJ Administration Ondansetron HCl 4 mg 03/22/20 05:25 03/23/20 07:56 Ondansetron Pf 4 Mg/2 Ml Vial IVP 4 mg Q6H PRN Administration Nausea/Vomiting Saccharomyces Boulardii 250 mg 03/23/20 09:00 03/24/20 08:05 Saccharomyces Boulardii 250 Mg Cap PO 250 mg DAILY JJ Administration Sodium Chloride 10 ml 03/23/20 09:00 03/24/20 08:07 Flush - Normal Saline 10 Ml Syringe IVF 10 ml Q12HR JJ Administration - Exam General Appearance: NAD Neck: supple, no JVD Heart: RRR, no gallops Respiratory: no wheezes, no ronchi Gastrointestinal: soft, non-distended, no guarding, no rigidity Gastrointestinal - other findings: Mild RLQ tenderness Extremities: no cyanosis, no clubbing Neurological: no new deficit Psychiatric: normal affect, A&O x 3 Hosp A/P - Plan DVT proph w/SCDs Sepsis due to Campylobacter gastroenteritis with bacteremia Hypokalemia Dehydration Obesity with a BMI 36.6 Hypertension Diabetes mellitus type 2 History of COVID-19 Plan: Blood culture pending. Continue IV levofloxacin with probiotics. Continue glipizide. Left shift resolved. Continue sliding scale. Stool culture reviewed. Low fiber diet. DVT prophylaxis. Continue amlodipine, lisinopril hydrochlorothiazide and other medications as above
[2020-03-24] MEDS ORDERED: Melatonin 3 MG TAB PO SCH (21:00)
[2020-03-25] MEDS: HumaLOG 300 UNITS/3 ML VIAL SC PRN ×2 (04:55→09:47)
[2020-03-25] MEDS: Acetaminophen 325 MG TAB PO PRN (05:01)
[2020-03-25 07:30] VITALS: BP 159/91; TEMP 98.4
[2020-03-25] MEDS: Magnesium Chloride 64 MG TAB PO SCH (08:15)
[2020-03-25] MEDS: Lisinopril/Hydrochlorothiazide 10 mg/12.5 mg Tablet PO SCH (08:15)
[2020-03-25] MEDS: Amlodipine 10 MG TAB PO SCH (08:15)
[2020-03-25] MEDS: Saccharomyces boulardii 250 MG CAP PO SCH (08:16)
[2020-03-25] MEDS: glipiZIDE 5 MG TAB PO SCH (08:16)
--- NOTE | 2020-03-25 12:43 | PRG ---
DATE OF SERVICE: 03/25/2020 SUBJECTIVE: Ms. Meredith feels well. She wants to go home. She is to get back to work. She says she has been afebrile. OBJECTIVE: VITAL SIGNS: Temperature is 98.4, pulse 67, blood pressure 159/91. ABDOMEN: Soft, nontender. NEUROLOGIC: She is alert and oriented to person, place, and time. LABORATORY DATA: No labs today. Microbiology is pending, although on her identification of gram-negative rods in the blood, she did have stool Campylobacter antigen positive, likely these are related, but we need to make sure. She seems to be improving with fluoroquinolone. RECOMMENDATION: Once ID known on the gram-negative rods in the blood, can discharge home in a total of 10-day course of appropriate antibiotic. Her GI symptoms seem to have resolved. She did have CAT scan changes of right-sided ileitis, colitis, which would go along with Campylobacter and had some diarrhea prior to admission. I have not seen Campylobacter get into the blood, but I am sure that it can and we just need to make sure that the blood culture specimens are sensitive to the present antibiotics. We will follow from a distance. If I can be of any further assistance in her care, please do not hesitate to contact me. Job ID: [id number]
--- NOTE | 2020-03-25 22:14 | PDOC.DS.DS ---
Provider - Provider Date of Admission: 03/22/20 16:14 Date of Discharge: 03/25/20 Admitting Provider: Leighton Cornell MD Consultations: Gastroentrology Primary Care Physician: Mariangel Hameed PA-C Course - Hospital Course Hospital Course: Patient is a 40-year-old female with diabetes mellitus type II presented to the hospital on 03/22 with abdominal discomfort along with intermittent diarrhea. The CT scan of the abdomen in the emergency room showed fat stranding in the right lower quadrant with some prominent lymph node. A WBC count on admission was 12.8 with 20 percent bandemia and temperature of 102.6. Stool workup was consistent with positive lactoferrin with Campylobacter. A blood culture also came back positive for Campylobacter. She was initially placed on Zosyn that was transitioned to Levaquin after Campylobacter results. Patient has been afebrile over the last 48 hours. She was also evaluated by gastroenterology. Patient has been cleared for discharge. She was advised to follow-up with gastroenterology as outpatient. Final diagnosis: Sepsis due to Campylobacter gastroenteritis with bacteremia Hypokalemia Dehydration Obesity with a BMI 36.6 Hypertension Diabetes mellitus type 2 History of COVID-19 Resuscitation Status: 03/22/20 05:32 Resuscitation Status Routine Resuscitation Status: FULL: Full Resuscitation - Labs Lab Results: 03/23/20 05:20 03/23/20 05:20 Microbiology - Entire Visit 03/21/20 23:53 Venous blood - Right Arm Blood Culture - Final Campylobacter Species 03/21/20 23:53 Venous blood - Left Arm Blood Culture - Final Campylobacter Species 03/22/20 13:58 Stool Stool Culture - Final 03/22/20 13:58 Stool Escherichia coli 0157 Culture - Final 03/21/20 23:45 Urine clean catch Urine Culture - Final 03/22/20 13:58 Stool C. difficile GDH Antigen & Toxins - Final 03/22/20 13:58 Stool Stool Lactoferrin - Final 03/22/20 13:58 Stool Campylobacter Antigen Assay - Final 03/22/20 13:58 Stool Shiga Toxin Test - Final - Physical Exam Vitals: Weight Weight 234 lb Physical Exam: The patient was seen and examined on the day of discharge. Plan - Discharge Medications Prescriptions: Saccharomyces boulardii [Florastor] 250 mg PO DAILY #30 cap Levofloxacin [Levaquin] 500 mg PO DAILY #7 tab Home Medications: Medication Instructions Recorded Confirmed Type metFORMIN HCl 1,000 mg PO BID-WM 06/09/13 03/22/20 History Amlodipine [Norvasc] 10 mg PO DAILY 03/22/20 03/22/20 History Lisinopril/Hydrochlorothiazide 1 tablet PO DAILY 03/22/20 03/22/20 History [Lisinopril-Hctz 10-12.5 mg Tab] Levofloxacin [Levaquin] 500 mg PO DAILY #7 tab 03/25/20 Rx Saccharomyces boulardii [Florastor] 250 mg PO DAILY #30 cap 03/25/20 Rx Allergies: No Known Allergies Allergy (Verified 08/08/19 06:07) none - Follow up Plan Referrals: John Singh MD [Active] - 7 Days [facility] [Lab Providers] - 3 Days Disposition: HOME Quality - Care Measures CORE MEASURES:: N/A
== END 2020-03-25 14:02 | disposition home or self-care (01) | DRG 872 ==
LOC: ERS 23:05 → T4-A 03-22 04:04 → INTOOBSV 03-22 04:04 → OBSVTOIN 03-22 16:14
PROVIDERS: ADMIT Internal Medicine; ATTEND Internal Medicine
DX: A41.89 Other specified sepsis (principal); A04.5 Campylobacter enteritis; E87.6 Hypokalemia; E86.0 Dehydration; E66.9 Obesity, unspecified; I10 Essential (primary) hypertension; E11.9 Type 2 diabetes mellitus without complications; E78.00 Pure hypercholesterolemia, unspecified; F17.210 Nicotine dependence, cigarettes, uncomplicated; Z20.828 Contact with and (suspected) exposure to other viral communicable diseases; Z68.36 Body mass index [BMI] 36.0-36.9, adult; Z86.19 Personal history of other infectious and parasitic diseases; Z79.899 Other long term (current) drug therapy; Z79.84 Long term (current) use of oral hypoglycemic drugs; Z90.49 Acquired absence of other specified parts of digestive tract
CPT/HCPCS: 36415; 36416; 71045; 74177; 80048; 80053; 81003; 81025; 83605; 83630; 84702; 85025; 87040; 87045; 87046; 87086; 87324; 87427; 87449; 93005; 96367; G0378; J0295; J0696; J1200; J1885; J1956; J2405; J2543; J2765; J3490; Q0163; Q9967

== ENCOUNTER 2020-04-23 00:58 | Emergency (ER) | payer OTHER | END 2020-04-23 03:11 | disposition left against medical advice (07) | LOC: ERS 00:58 | DX: Z53.21 Procedure and treatment not carried out due to patient leaving prior to being seen by health care provider (principal) ==

== ENCOUNTER 2021-03-18 20:06 | Emergency (ER) | payer OTHER ==
[2021-03-18] MEDS ORDERED: methylPREDNISolone Sod Succ/PF 125 MG/2 ML VIAL ONE (20:46)
[2021-03-18] MEDS ORDERED: Albuterol 200 PUFF (6.7GM INHALER) ONE (21:03)
[2021-03-18 21:14] LABS: #Basophils 0.1 thou/uL (0.0-0.2); #Eosinphils 0.1 thou/uL (0.0-0.7); #Lymphocytes 1.5 thou/uL (1.20-3.40); #Monocytes 0.6 thou/uL (0.11-0.59); #Neutrophils 3.8 thou/uL (1.40-6.50); %Lymphocytes 24.2 % (21.0-51.0); %Monocytes 10.4 % (0.0-10.0); %Neutrophils 62.5 % (42.0-75.0); Hemoglobin 14.3 g/dL (12.0-16.0); Mean Corpuscular HGB CONC 35.6 g/dL (32.0-36.0); Mean Corpuscular Hemoglobin 32.2 pg (27.0-31.0); Mean Corpuscular Volume 90.5 fL (78.0-98.0); Mean Platelet Volume 7.8 fL (7.4-10.4); Platelet Count 249 thou/uL (130-400); RBC Distribution Width 11.8 % (11.5-14.5); Red Blood Cell (RBC) Count 4.45 mill/uL (4.20-5.40); White Blood Cell (WBC) Count 6.1 thou/uL (4.8-10.8)
[2021-03-18 21:26] LABS: ALT (SGPT) 18 U/L (8-55); AST (SGOT) 17 U/L (5-34); Albumin 3.9 g/dL (3.5-5.0); Alkaline Phosphatase 49 U/L (40-110); Anion Gap 12 mmol/L (10-20); BUN (Urea Nitrogen) 13 mg/dL (7.0-18.7); Bilirubin, Total 0.3 mg/dL (0.2-1.2); Calc. Creatinine Clearance 0 mL/min (70-130); Calcium 9.2 mg/dL (7.8-10.44); Carbon Dioxide 25 mmol/L (22-29); Chloride 102 mmol/L (98-107); Globulin 2.8 g/dL (2.4-3.5); Glucose 260 mg/dL (70-105); Potassium 4.2 mmol/L (3.5-5.1); Protein, Total 6.7 g/dL (6.0-8.3); Sodium 135 mmol/L (136-145)
== END 2021-03-18 21:45 | disposition home or self-care (01) ==
LOC: ERS 20:06
DX: J45.901 Unspecified asthma with (acute) exacerbation (principal); I10 Essential (primary) hypertension; E11.9 Type 2 diabetes mellitus without complications; Z79.899 Other long term (current) drug therapy
CPT/HCPCS: 71045; 80053; 84484; 85025; 93005; 96374; J2930

== ENCOUNTER 2021-05-05 13:13 | Emergency (ER) | payer OTHER ==
[2021-05-05 15:40] LABS: SARS-CoV-2 NAA Rapid Test Not Detected (NotDetected)
== END 2021-05-05 14:20 | disposition home or self-care (01) ==
LOC: ERS 13:13
DX: B34.9 Viral infection, unspecified (principal); I10 Essential (primary) hypertension; E11.9 Type 2 diabetes mellitus without complications; J45.909 Unspecified asthma, uncomplicated; Z20.822 Contact with and (suspected) exposure to COVID-19; Z79.4 Long term (current) use of insulin; Z79.899 Other long term (current) drug therapy
CPT/HCPCS: 0240U; 99283

== ENCOUNTER 2021-09-26 18:03 | Emergency (ER) | payer OTHER ==
[2021-09-26] MEDS ORDERED: Ibuprofen 800 MG TAB ONE (18:40)
== END 2021-09-26 19:46 | disposition home or self-care (01) ==
LOC: ERS 18:03
DX: S53.402A Unspecified sprain of left elbow, initial encounter (principal); J45.909 Unspecified asthma, uncomplicated; I10 Essential (primary) hypertension; E11.9 Type 2 diabetes mellitus without complications; Z79.899 Other long term (current) drug therapy; Z79.84 Long term (current) use of oral hypoglycemic drugs; X50.9XXA Other and unspecified overexertion or strenuous movements or postures, initial encounter

== ENCOUNTER 2022-03-12 08:41 | Inpatient (IN) | payer OTHER ==
[2022-03-12 09:23] LABS: #Eosinphils 0.1 thou/uL (0.0-0.7); #Lymphocytes 2.2 thou/uL (1.20-3.40); #Monocytes 0.4 thou/uL (0.11-0.59); #Neutrophils 3.5 thou/uL (1.40-6.50); %Basophils 0.3 % (0.0-1.0); %Eosinophils 2.1 % (0.0-10.0); %Lymphocytes 35.4 % (21.0-51.0); %Monocytes 6.2 % (0.0-10.0); %Neutrophils 55.9 % (42.0-75.0); Mean Corpuscular HGB CONC 33.4 g/dL (32.0-36.0); Mean Corpuscular Hemoglobin 31.6 pg (27.0-31.0); Mean Corpuscular Volume 94.5 fl (78.0-98.0); Platelet Count 276 thou/uL (130-400); RBC Distribution Width 11.9 % (11.5-14.5); Red Blood Cell (RBC) Count 4.75 mill/uL (4.20-5.40); White Blood Cell (WBC) Count 6.2 thou/uL (4.8-10.8)
[2022-03-12 09:47] LABS: ALT (SGPT) 19 U/L (8-55); AST (SGOT) 14 U/L (5-34); Albumin 3.9 g/dL (3.5-5.0); Alkaline Phosphatase 51 U/L (40-110); Anion Gap 13 mmol/L (10-20); BUN (Urea Nitrogen) 13 mg/dL (7.0-18.7); Bilirubin, Total 0.4 mg/dL (0.2-1.2); Calc. Creatinine Clearance 0 mL/min (70-130); Calcium 9.4 mg/dL (7.8-10.44); Carbon Dioxide 25 mmol/L (22-29); Chloride 100 mmol/L (98-107); Estimated GFR 98; Globulin 2.9 g/dL (2.4-3.5); Glucose 339 mg/dL (70-105); Lipase 48 U/L (8-78); Potassium 3.8 mmol/L (3.5-5.1); Protein, Total 6.8 g/dL (6.0-8.3); Sodium 134 mmol/L (136-145)
[2022-03-12] MEDS ORDERED: Nitroglycerin 2% Ointment 1 INCH/1 GM Packet ONE (09:48)
[2022-03-12] MEDS ORDERED: Aspirin Chewable 81 MG TAB ONE (09:48)
[2022-03-12] MEDS ORDERED: Nitroglycerin 0.4 MG TAB 1 EACH ONE ×2 (10:08→10:09)
[2022-03-12 10:26] LABS: BHCG - Serum Negative (NEGATIVE); Pregs Control Background? CLEAR/WHITE (CLR/WHITE); Pregs Control Bar Appear? YES (CONTROL BAR)
[2022-03-12] MEDS ORDERED: Nitroglycerin 0.4 MG TAB (25 Tab Bottle) SL PRN (12:54)
[2022-03-12] MEDS ORDERED: Ondansetron ODT 4 MG TAB PO PRN (12:54)
[2022-03-12] MEDS ORDERED: Senokot S 8.6-50 MG TAB PO PRN (12:54)
[2022-03-12] MEDS ORDERED: Calcium Carbonate 500 MG ChewTAB PO PRN (12:54)
[2022-03-12] MEDS ORDERED: Ondansetron PF 4 MG/2 ML Vial IVP PRN (12:54)
[2022-03-12] MEDS ORDERED: hydrALAZINE 20 MG/ML VIAL SLOW IVP PRN (12:59)
[2022-03-12 13:59] VITALS: BMI 39.4
[2022-03-12 14:09] LABS: Troponin I Less than 0.010 ng/mL (< 0.028)
[2022-03-12] MEDS: Acetaminophen 325 MG TAB PO PRN (14:41)
[2022-03-12] MEDS ORDERED: FLU VACC QS2022-23(6MOS UP)/PF 60 MCG/0.5 ML SYRINGE IM ONE (15:30)
[2022-03-12 17:00] LABS: Troponin I 0.014 ng/mL (< 0.028)
[2022-03-12] MEDS ORDERED: HYDROcodone/Acetaminophen 10/325 mg Tablet PO SCH ×2 (17:30→18:03)
[2022-03-12] MEDS ORDERED: Dextrose 50% Abboject 50 ML SYRINGE SLOW IVP PRN (19:07)
[2022-03-12] MEDS ORDERED: Dextrose 5% in Water 1,000 ML IV PRN (19:07)
[2022-03-12] MEDS: HumaLOG 300 UNITS/3 ML VIAL SC PRN (20:38)
[2022-03-12 21:09] LABS: Magnesium 1.7 mg/dL (1.6-2.6)
[2022-03-13 05:10] LABS: Hemoglobin A1c 9.8 % (4.0-6.0)
[2022-03-13 05:11] LABS: #Eosinphils 0.2 thou/uL (0.0-0.7); #Lymphocytes 2.9 thou/uL (1.20-3.40); #Monocytes 0.4 thou/uL (0.11-0.59); #Neutrophils 2.4 thou/uL (1.40-6.50); %Eosinophils 2.6 % (0.0-10.0); %Lymphocytes 49.5 % (21.0-51.0); %Monocytes 7.1 % (0.0-10.0); %Neutrophils 40.8 % (42.0-75.0); Hemoglobin 13.5 g/dL (12.0-16.0); Mean Corpuscular Hemoglobin 30.7 pg (27.0-31.0); Mean Corpuscular Volume 93.2 fl (78.0-98.0); Platelet Count 247 thou/uL (130-400); RBC Distribution Width 11.7 % (11.5-14.5); Red Blood Cell (RBC) Count 4.38 mill/uL (4.20-5.40); White Blood Cell (WBC) Count 5.8 thou/uL (4.8-10.8)
[2022-03-13 05:28] LABS: ALT (SGPT) 16 U/L (8-55); AST (SGOT) 10 U/L (5-34); Albumin 3.4 g/dL (3.5-5.0); Alkaline Phosphatase 42 U/L (40-110); Anion Gap 9 mmol/L (10-20); BUN (Urea Nitrogen) 14 mg/dL (7.0-18.7); Bilirubin, Total 0.5 mg/dL (0.2-1.2); Calc. Creatinine Clearance 180 mL/min (70-130); Calcium 8.5 mg/dL (7.8-10.44); Carbon Dioxide 29 mmol/L (22-29); Chloride 101 mmol/L (98-107); Cholesterol 165 mg/dl (< 200 Desired); Estimated GFR 103; Globulin 2.5 g/dL (2.4-3.5); Glucose 257 mg/dL (70-105); HDL Cholesterol 33 mg/dL (>60 Neg Risk); LDL Cholesterol, Calculated 93 mg/dL; Protein, Total 5.9 g/dL (6.0-8.3); Sodium 135 mmol/L (136-145); Triglycerides 195 mg/dL (Less than 150)
[2022-03-13] MEDS: Aspirin Chewable 81 MG TAB PO SCH (08:16)
[2022-03-13] MEDS: Amlodipine 5 MG TAB PO SCH (08:16)
[2022-03-13] MEDS: glipiZIDE 10 MG TAB PO SCH (08:16)
[2022-03-13] MEDS: Simvastatin 10 MG TAB PO SCH (08:16)
[2022-03-13] MEDS: Enoxaparin Sodium 40 MG/0.4 ML SYRINGE SC SCH (08:17)
[2022-03-13] MEDS ORDERED: Regadenoson 0.4 MG/5 ML SYRINGE ONE (08:58)
[2022-03-13] MEDS: HumaLOG 300 UNITS/3 ML VIAL SC PRN ×3 (11:28→21:28)
[2022-03-13] MEDS: metFORMIN 500 MG TAB PO SCH (16:48)
[2022-03-13] MEDS ORDERED: HYDROcodone/Acetaminophen 5/325 mg Tablet PO PRN (19:18)
[2022-03-13] MEDS ORDERED: Melatonin 3 MG TAB PO PRN (19:19)
[2022-03-13] MEDS ORDERED: Lisinopril/Hydrochlorothiazide 20/25 mg Tablet PO SCH (19:30)
[2022-03-13] MEDS: Acetaminophen 325 MG TAB PO PRN (19:33)
[2022-03-14] MEDS ORDERED: Electrolyte Replacement Protocol 1 EACH FS SCH (02:15)
[2022-03-14 05:23] LABS: Anion Gap 11 mmol/L (10-20); BUN (Urea Nitrogen) 12 mg/dL (7.0-18.7); Calc. Creatinine Clearance 190 mL/min (70-130); Carbon Dioxide 28 mmol/L (22-29); Chloride 100 mmol/L (98-107); Estimated GFR 110; Glucose 259 mg/dL (70-105); Magnesium 1.7 mg/dL (1.6-2.6); Potassium 4.1 mmol/L (3.5-5.1); Sodium 135 mmol/L (136-145)
[2022-03-14] MEDS: HumaLOG 300 UNITS/3 ML VIAL SC PRN ×4 (05:49→21:25)
[2022-03-14] MEDS: Acetaminophen 325 MG TAB PO PRN (05:53)
[2022-03-14] MEDS ORDERED: Magnesium 2 GM/50 ML(in water) 2 GM in Premix Bag 1 BAG IVPB SCH (06:30)
[2022-03-14] MEDS: Simvastatin 10 MG TAB PO SCH (08:46)
[2022-03-14] MEDS: Aspirin Chewable 81 MG TAB PO SCH (08:46)
[2022-03-14] MEDS: metFORMIN 500 MG TAB PO SCH ×2 (08:46→17:18)
[2022-03-14] MEDS: glipiZIDE 10 MG TAB PO SCH (08:46)
[2022-03-14] MEDS: Lisinopril/Hydrochlorothiazide 20/25 mg Tablet PO SCH (08:47)
[2022-03-14] MEDS: Enoxaparin Sodium 40 MG/0.4 ML SYRINGE SC SCH (08:47)
[2022-03-14] MEDS: Amlodipine 5 MG TAB PO SCH (08:47)
[2022-03-14] MEDS ORDERED: Communication Order-Pharmacy FS SCH (16:45)
[2022-03-14] MEDS: Rosuvastatin 20 MG TAB PO SCH (20:00)
[2022-03-15 05:44] LABS: Anion Gap 12 mmol/L (10-20); BUN (Urea Nitrogen) 14 mg/dL (7.0-18.7); Calc. Creatinine Clearance 180 mL/min (70-130); Calcium 8.7 mg/dL (7.8-10.44); Carbon Dioxide 27 mmol/L (22-29); Chloride 99 mmol/L (98-107); Estimated GFR 103; Glucose 263 mg/dL (70-105); Magnesium 1.8 mg/dL (1.6-2.6); Sodium 134 mmol/L (136-145)
[2022-03-15] MEDS: HumaLOG 300 UNITS/3 ML VIAL SC PRN ×4 (06:06→20:26)
[2022-03-15] MEDS ORDERED: Lorazepam 0.5 MG TAB PO PRN (07:16)
[2022-03-15] MEDS: glipiZIDE 10 MG TAB PO SCH (07:54)
[2022-03-15] MEDS: Amlodipine 5 MG TAB PO SCH (07:54)
[2022-03-15] MEDS: Enoxaparin Sodium 40 MG/0.4 ML SYRINGE SC SCH (07:54)
[2022-03-15] MEDS: Lisinopril/Hydrochlorothiazide 20/25 mg Tablet PO SCH (07:54)
[2022-03-15] MEDS: Aspirin Chewable 81 MG TAB PO SCH (07:54)
[2022-03-15] MEDS: metFORMIN 500 MG TAB PO SCH ×2 (07:54→17:16)
[2022-03-15] MEDS ORDERED: Magnesium 2 GM/50 ML(in water) 2 GM in Premix Bag 1 BAG IVPB SCH (12:00)
[2022-03-15] MEDS: Rosuvastatin 20 MG TAB PO SCH (20:25)
[2022-03-16] MEDS: metFORMIN 500 MG TAB PO SCH ×2 (04:41→17:58)
[2022-03-16] MEDS: glipiZIDE 10 MG TAB PO SCH (04:41)
[2022-03-16] MEDS: Enoxaparin Sodium 40 MG/0.4 ML SYRINGE SC SCH (04:41)
[2022-03-16 05:35] LABS: Magnesium 1.8 mg/dL (1.6-2.6); Phosphorus 4.6 mg/dL (2.3-4.7); Potassium 3.9 mmol/L (3.5-5.1)
[2022-03-16] MEDS: Amlodipine 5 MG TAB PO SCH (06:11)
[2022-03-16] MEDS: Sodium Chloride 0.9% 1,000 ML IV SCH ×2 (06:12→19:20)
[2022-03-16] MEDS: Aspirin Chewable 81 MG TAB PO SCH (06:12)
[2022-03-16] MEDS: Lisinopril/Hydrochlorothiazide 20/25 mg Tablet PO SCH (06:12)
[2022-03-16] MEDS ORDERED: Magnesium 2 GM/50 ML(in water) 2 GM in Premix Bag 1 BAG IVPB SCH (08:00)
[2022-03-16] MEDS ORDERED: Fentanyl 100 MCG/2 ML VIAL ONE ×2 (08:26→10:32)
[2022-03-16] MEDS ORDERED: Midazolam HCl 2 mg/2 ml Vial ONE (08:26)
[2022-03-16] MEDS ORDERED: Adenosine 6 MG/2 ML VIAL ONE (08:27)
[2022-03-16] MEDS ORDERED: Lidocaine 1% PF 5 ML VIAL ONE (08:27)
[2022-03-16] MEDS ORDERED: Heparin 10,000 UNITS/ 10 ML VIAL ONE ×2 (08:27→10:31)
[2022-03-16] MEDS ORDERED: Nitroglycerin 100MG/250ML BOT 250 ML ONE (08:27)
[2022-03-16] MEDS ORDERED: Lidocaine 1% (PF) 30 ML VIAL ONE (08:38)
[2022-03-16] MEDS ORDERED: Clopidogrel Bisulfate 300 MG TAB ONE ×2 (10:31→10:32)
[2022-03-16] MEDS ORDERED: Clopidogrel Bisulfate 300 MG TAB PO SCH (11:15)
[2022-03-16] MEDS ORDERED: fentaNYL Citrate/PF 100 MCG/2 ML SYRINGE ONE ×2 (11:43→13:20)
[2022-03-16] MEDS ORDERED: Acetaminophen 500 MG TAB ONE (13:21)
[2022-03-16] MEDS ORDERED: FENTANYL 50 MCG/ML VIAL 50 MCG/ML VIAL SLOW IVP PRN (13:26)
[2022-03-16] MEDS ORDERED: FENTANYL 50 MCG/ML VIAL 50 MCG/ML VIAL SLOW IVP SCH (13:30)
[2022-03-16] MEDS ORDERED: Mag-Al 1200 mg/1200 mg/30 ML UDCUP ONE (14:17)
[2022-03-16] MEDS ORDERED: Iopamidol 370 76% 100 ML VIAL ONE (14:45)
[2022-03-16] MEDS: HumaLOG 300 UNITS/3 ML VIAL SC PRN (17:56)
[2022-03-16] MEDS ORDERED: Rosuvastatin 20 MG TAB PO SCH (21:00)
[2022-03-16] MEDS ORDERED: Polyethylene Glycol 3350 17 GM Packet PO SCH (21:30)
[2022-03-17 05:00] LABS: #Eosinphils 0.2 thou/uL (0.0-0.7); #Monocytes 0.6 thou/uL (0.11-0.59); #Neutrophils 4.2 thou/uL (1.40-6.50); %Basophils 0.3 % (0.0-1.0); %Eosinophils 2.3 % (0.0-10.0); %Lymphocytes 37.8 % (21.0-51.0); %Monocytes 7.5 % (0.0-10.0); %Neutrophils 52.2 % (42.0-75.0); Hemoglobin 14.5 g/dL (12.0-16.0); Mean Corpuscular HGB CONC 34.1 g/dL (32.0-36.0); Mean Corpuscular Hemoglobin 31.9 pg (27.0-31.0); Mean Corpuscular Volume 93.5 fl (78.0-98.0); Mean Platelet Volume 7.8 fL (7.4-10.4); Platelet Count 269 thou/uL (130-400); RBC Distribution Width 11.5 % (11.5-14.5); Red Blood Cell (RBC) Count 4.54 mill/uL (4.20-5.40)
[2022-03-17 05:33] LABS: ALT (SGPT) 16 U/L (8-55); AST (SGOT) 12 U/L (5-34); Albumin 3.6 g/dL (3.5-5.0); Alkaline Phosphatase 43 U/L (40-110); Anion Gap 13 mmol/L (10-20); BUN (Urea Nitrogen) 16 mg/dL (7.0-18.7); Bilirubin, Total 0.5 mg/dL (0.2-1.2); Calc. Creatinine Clearance 166 mL/min (70-130); Carbon Dioxide 26 mmol/L (22-29); Chloride 98 mmol/L (98-107); Estimated GFR 94; Globulin 2.6 g/dL (2.4-3.5); Glucose 294 mg/dL (70-105); Magnesium 1.9 mg/dL (1.6-2.6); Potassium 4.4 mmol/L (3.5-5.1); Protein, Total 6.2 g/dL (6.0-8.3); Sodium 133 mmol/L (136-145)
[2022-03-17] MEDS ORDERED: Magnesium 2 GM/50 ML(in water) 2 GM in Premix Bag 1 BAG IVPB SCH ×2 (05:45→08:00)
[2022-03-17] MEDS: HumaLOG 300 UNITS/3 ML VIAL SC PRN ×2 (06:02→11:42)
[2022-03-17] MEDS: Sodium Chloride 0.9% 1,000 ML IV SCH (06:16)
[2022-03-17] MEDS: Aspirin Chewable 81 MG TAB PO SCH (08:00)
[2022-03-17] MEDS: Amlodipine 5 MG TAB PO SCH (08:00)
[2022-03-17] MEDS: Lisinopril/Hydrochlorothiazide 20/25 mg Tablet PO SCH (08:00)
[2022-03-17] MEDS: glipiZIDE 10 MG TAB PO SCH (08:00)
[2022-03-17] MEDS ORDERED: Ezetimibe 10 MG TAB PO SCH (09:00)
[2022-03-17] MEDS ORDERED: Clopidogrel Bisulfate 75 MG TAB PO SCH (09:00)
[2022-03-17] MEDS ORDERED: Polyethylene Glycol 3350 17 GM Packet PO SCH (09:00)
[2022-03-17 12:39] VITALS: BP 140/81; TEMP 99
[2022-03-17] MEDS ORDERED: Famotidine 20 MG TAB PO SCH (21:00)
== END 2022-03-17 14:28 | disposition home or self-care (01) | DRG 247 ==
LOC: SUATTDRO 08:41 → ERS 08:41 → 2SW 13:46 → OBSVTOIN 03-15 07:15
PROVIDERS: ADMIT Internal Medicine; ATTEND Internal Medicine
PROC: 027034Z Dilation of Coronary Artery, One Artery with Drug-eluting Intraluminal Device, Percutaneous Approach (ICD-10-PCS; principal; 2022-03-16)
PROC: 4A023N7 Measurement of Cardiac Sampling and Pressure, Left Heart, Percutaneous Approach (ICD-10-PCS; 2022-03-16)
PROC: B2111ZZ Fluoroscopy of Multiple Coronary Arteries using Low Osmolar Contrast (ICD-10-PCS; 2022-03-16)
PROC: B2151ZZ Fluoroscopy of Left Heart using Low Osmolar Contrast (ICD-10-PCS; 2022-03-16)
DX: I25.110 Atherosclerotic heart disease of native coronary artery with unstable angina pectoris (principal); I47.20 Ventricular tachycardia, unspecified; E87.1 Hypo-osmolality and hyponatremia; I10 Essential (primary) hypertension; E11.9 Type 2 diabetes mellitus without complications; E78.5 Hyperlipidemia, unspecified; F12.929 Cannabis use, unspecified with intoxication, unspecified; E66.01 Morbid (severe) obesity due to excess calories; E83.42 Hypomagnesemia; K59.00 Constipation, unspecified; E88.09 Other disorders of plasma-protein metabolism, not elsewhere classified; Z20.822 Contact with and (suspected) exposure to COVID-19; Z79.84 Long term (current) use of oral hypoglycemic drugs; Z79.899 Other long term (current) drug therapy; Z68.39 Body mass index [BMI] 39.0-39.9, adult; Z90.49 Acquired absence of other specified parts of digestive tract
CPT/HCPCS: 36415; 36416; 71045; 78452; 80048; 80053; 80061; 83036; 83690; 83735; 84100; 84132; 84484; 84703; 85025; 85347; 92928; 93005; 93010; 93017; 93458; 93798; 94760; 96365; 99152; 99153; A9500; C1769; C1874; C1887; C1894; C9600; G0378; J0153; J1644; J1815; J2001; J2250; J2785; J3010; J3475; J7050; Q9967; U0003; U0005

== ENCOUNTER 2022-03-24 19:59 | Emergency (ER) | payer OTHER ==
[2022-03-24 21:13] LABS: SARS-CoV-2 NAA Rapid Test Not Detected (NotDetected)
== END 2022-03-24 21:33 | disposition home or self-care (01) ==
LOC: ERS 19:59
DX: B34.9 Viral infection, unspecified (principal); E11.9 Type 2 diabetes mellitus without complications; I10 Essential (primary) hypertension; Z20.822 Contact with and (suspected) exposure to COVID-19
CPT/HCPCS: 99283

== ENCOUNTER 2022-03-30 18:53 | Inpatient (IN) | payer OTHER ==
[~2022-03-30 18:53] MED LIST: Iopamidol-370 76% 500 ML 1 ML ONE
[2022-03-30 19:31] LABS: #Basophils 0.1 thou/uL (0.0-0.2); #Eosinphils 0.2 thou/uL (0.0-0.7); #Lymphocytes 3.3 thou/uL (1.20-3.40); #Monocytes 0.5 thou/uL (0.11-0.59); %Basophils 0.5 % (0.0-1.0); %Eosinophils 1.7 % (0.0-10.0); %Lymphocytes 32.9 % (21.0-51.0); %Monocytes 5.3 % (0.0-10.0); %Neutrophils 59.6 % (42.0-75.0); Mean Corpuscular HGB CONC 34.7 g/dL (32.0-36.0); Mean Corpuscular Hemoglobin 31.6 pg (27.0-31.0); Mean Corpuscular Volume 90.9 fl (78.0-98.0); Mean Platelet Volume 7.8 fL (7.4-10.4); Platelet Count 274 10x3/uL (130-400); RBC Distribution Width 11.8 % (11.5-14.5); Red Blood Cell (RBC) Count 4.13 mill/uL (4.20-5.40)
[2022-03-30 19:41] LABS: INR-International Normal Ratio 0.9; Prothrombin Time 12.7 sec (12.0-14.7)
[2022-03-30 19:42] LABS: PTT 26.5 sec (22.9-36.1)
[2022-03-30 19:59] LABS: ALT (SGPT) 22 U/L (8-55); AST (SGOT) 15 U/L (5-34); Albumin 4.1 g/dL (3.5-5.0); Alkaline Phosphatase 46 U/L (40-110); Anion Gap 12 mmol/L (10-20); BUN (Urea Nitrogen) 16 mg/dL (7.0-18.7); Bilirubin, Total 0.5 mg/dL (0.2-1.2); Calc. Creatinine Clearance 0 mL/min (70-130); Calcium 9.1 mg/dL (7.8-10.44); Carbon Dioxide 29 mmol/L (22-29); Chloride 100 mmol/L (98-107); Estimated GFR 75; Globulin 3.1 g/dL (2.4-3.5); Glucose 388 mg/dL (70-105); Potassium 3.7 mmol/L (3.5-5.1); Protein, Total 7.2 g/dL (6.0-8.3); Sodium 137 mmol/L (136-145)
[2022-03-30 20:02] LABS: Actual Bicarbonate (HCO3v) 26 mEq/L (22-28); Base Excess 1.3 mEq/L (-2.0 to +3.0); Calcium, Ionized (venous) 1.09 mmol/L (1.16-1.32); Chloride (VBG) 97 mmol/L (98-106); Hemoglobin (Hb) 13.4 g/dL (11.7-15.5); Potassium (VBG) 3.86 mmol/L (3.70-5.30); Sodium 133.5 mmol/L (133-146)
[2022-03-30 20:40] LABS: Bilirubin Negative (Negative); Blood, Urine Negative (Negative); Clarity Clear (Clear); Glucose, Urine (Dipstick) Greater than 1000 mg/dL (Negative); Ketone, Urine Negative (Negative); Leukocyte Negative Leu/uL (Negative); Nitrite Negative (Negative); Protein, Urine (Dipstick) Negative (Neg-Trace); Urobilinogen Normal mg/dL (Less than 2)
[2022-03-30 20:41] LABS: Specific Gravity, Urine 1.048 (1.002-1.036)
[2022-03-30] MEDS ORDERED: Aspirin Chewable 81 MG TAB ONE (20:41)
[2022-03-30] MEDS ORDERED: Acetaminophen 325 MG TAB PO PRN (21:20)
[2022-03-30] MEDS ORDERED: Dextrose 5% in Water 1,000 ML IV PRN (21:25)
[2022-03-30] MEDS ORDERED: Dextrose 50% Abboject 50 ML SYRINGE SLOW IVP PRN (21:25)
[2022-03-30] MEDS ORDERED: Amlodipine 5 MG TAB PO SCH (21:30)
[2022-03-30 22:47] LABS: Cardiac Risk 2.6 (Less than 4.5)
[2022-03-30 22:51] LABS: Troponin I 0.012 ng/mL (< 0.028)
[2022-03-30] MEDS: HYDROcodone/Acetaminophen 5/325 mg Tablet PO PRN (23:33)
[2022-03-30] MEDS: HumaLOG 300 UNITS/3 ML VIAL SC PRN (23:34)
[2022-03-31 00:09] VITALS: BMI 39.1
[2022-03-31 01:47] LABS: SARS-CoV-2 NAA Rapid Test Not Detected (NotDetected)
[2022-03-31 02:10] LABS: #Eosinphils 0.2 thou/uL (0.0-0.7); #Lymphocytes 2.8 thou/uL (1.20-3.40); #Monocytes 0.6 thou/uL (0.11-0.59); %Basophils 0.4 % (0.0-1.0); %Eosinophils 2.2 % (0.0-10.0); %Lymphocytes 32.8 % (21.0-51.0); %Monocytes 6.9 % (0.0-10.0); %Neutrophils 57.6 % (42.0-75.0); Hemoglobin 12.6 g/dL (12.0-16.0); Mean Corpuscular HGB CONC 34.6 g/dL (32.0-36.0); Mean Corpuscular Hemoglobin 31.8 pg (27.0-31.0); Mean Corpuscular Volume 91.8 fl (78.0-98.0); Mean Platelet Volume 7.4 fL (7.4-10.4); Platelet Count 254 10x3/uL (130-400); RBC Distribution Width 11.8 % (11.5-14.5); Red Blood Cell (RBC) Count 3.95 mill/uL (4.20-5.40); White Blood Cell (WBC) Count 8.7 10x3/uL (4.8-10.8)
[2022-03-31 02:35] LABS: Troponin I 0.018 ng/mL (< 0.028)
[2022-03-31 02:41] LABS: Anion Gap 11 mmol/L (10-20); BUN (Urea Nitrogen) 13 mg/dL (7.0-18.7); Calc. Creatinine Clearance 176 mL/min (70-130); Calcium 8.6 mg/dL (7.8-10.44); Carbon Dioxide 25 mmol/L (22-29); Chloride 102 mmol/L (98-107); Estimated GFR 102; Glucose 292 mg/dL (70-105); Potassium 3.8 mmol/L (3.5-5.1); Sodium 134 mmol/L (136-145)
[2022-03-31] MEDS ORDERED: hydrOXYzine 25 MG TAB PO PRN (03:35)
[2022-03-31] MEDS: HumaLOG 300 UNITS/3 ML VIAL SC PRN ×4 (06:34→21:39)
[2022-03-31] MEDS: Lisinopril/Hydrochlorothiazide 20/25 mg Tablet PO SCH (08:43)
[2022-03-31] MEDS: Ezetimibe 10 MG TAB PO SCH (08:43)
[2022-03-31] MEDS: glipiZIDE 10 MG TAB PO SCH (08:43)
[2022-03-31] MEDS: Aspirin Chewable 81 MG TAB PO SCH (08:44)
[2022-03-31] MEDS: metFORMIN 500 MG TAB PO SCH ×2 (08:44→17:11)
[2022-03-31] MEDS: Famotidine 20 MG TAB PO SCH ×2 (08:44→21:39)
[2022-03-31] MEDS: Clopidogrel Bisulfate 75 MG TAB PO SCH (08:44)
[2022-03-31 12:07] LABS: INR-International Normal Ratio 0.9; PTT 27.2 sec (22.9-36.1); Prothrombin Time 12.9 sec (12.0-14.7)
[2022-03-31 12:44] LABS: D-Dimer Test Less than 0.27 *mcg/mL (0.27-0.43)
[2022-03-31] MEDS ORDERED: Amlodipine 5 MG TAB PO SCH (21:00)
[2022-03-31] MEDS ORDERED: Rosuvastatin 20 MG TAB PO SCH (21:00)
[2022-04-01] MEDS: HumaLOG 300 UNITS/3 ML VIAL SC PRN ×2 (06:50→11:26)
[2022-04-01] MEDS: Famotidine 20 MG TAB PO SCH (08:30)
[2022-04-01] MEDS: glipiZIDE 10 MG TAB PO SCH (08:32)
[2022-04-01] MEDS: Aspirin Chewable 81 MG TAB PO SCH (08:32)
[2022-04-01] MEDS: Clopidogrel Bisulfate 75 MG TAB PO SCH (08:32)
[2022-04-01] MEDS: metFORMIN 500 MG TAB PO SCH (08:33)
[2022-04-01] MEDS: Lisinopril/Hydrochlorothiazide 20/25 mg Tablet PO SCH (08:33)
[2022-04-01] MEDS: Ezetimibe 10 MG TAB PO SCH (08:34)
[2022-04-01] MEDS: HYDROcodone/Acetaminophen 5/325 mg Tablet PO PRN (10:52)
[2022-04-01 11:28] VITALS: TEMP 96.4
[2022-04-01 11:51] VITALS: BP 128/86
[2022-04-01 12:17] LABS: Troponin I 0.013 ng/mL (< 0.028)
[2022-04-01 14:08] LABS: Protein C Activity 101 % (78-152)
[2022-04-02 12:36] LABS: HEX PHOS LA Tube 1 39.6 SEC; HEX PHOS LA Tube 2 39.8 SEC
== END 2022-04-01 14:00 | disposition home or self-care (01) | DRG 65 ==
LOC: ERS 18:53 → NEURO 21:14 → OBSVTOIN 03-31 14:49
PROVIDERS: ADMIT Family Medicine; ATTEND Family Medicine
DX: I63.81 Other cerebral infarction due to occlusion or stenosis of small artery (principal); G81.94 Hemiplegia, unspecified affecting left nondominant side; R29.703 NIHSS score 3; Z20.822 Contact with and (suspected) exposure to COVID-19; I25.10 Atherosclerotic heart disease of native coronary artery without angina pectoris; E01.0 Iodine-deficiency related diffuse (endemic) goiter; J45.909 Unspecified asthma, uncomplicated; I10 Essential (primary) hypertension; E11.9 Type 2 diabetes mellitus without complications; E78.5 Hyperlipidemia, unspecified; R20.2 Paresthesia of skin; E66.9 Obesity, unspecified; Z68.39 Body mass index [BMI] 39.0-39.9, adult; Z95.5 Presence of coronary angioplasty implant and graft; Z82.49 Family history of ischemic heart disease and other diseases of the circulatory system; Z83.3 Family history of diabetes mellitus; Z79.899 Other long term (current) drug therapy; Z79.84 Long term (current) use of oral hypoglycemic drugs; Z79.82 Long term (current) use of aspirin; Z79.01 Long term (current) use of anticoagulants; Z86.73 Personal history of transient ischemic attack (TIA), and cerebral infarction without residual deficits; Z79.02 Long term (current) use of antithrombotics/antiplatelets
CPT/HCPCS: 36415; 36416; 70450; 70496; 70498; 70551; 71045; 80048; 80053; 80061; 81003; 82805; 83090; 84443; 84484; 85025; 85240; 85300; 85303; 85305; 85307; 85379; 85598; 85610; 85730; 86147; 93005; 93010; 94760; 96360; G0378; J1815; Q9967

== ENCOUNTER 2022-04-04 16:17 | Emergency (ER) | payer OTHER ==
[2022-04-04 17:08] LABS: #Eosinphils 0.2 thou/uL (0.0-0.7); #Lymphocytes 2.8 thou/uL (1.20-3.40); #Monocytes 0.6 thou/uL (0.11-0.59); #Neutrophils 4.8 thou/uL (1.40-6.50); %Basophils 0.2 % (0.0-1.0); %Eosinophils 1.9 % (0.0-10.0); %Lymphocytes 33.9 % (21.0-51.0); %Monocytes 6.7 % (0.0-10.0); %Neutrophils 57.4 % (42.0-75.0); Hemoglobin 12.8 g/dL (12.0-16.0); Mean Corpuscular HGB CONC 35.4 g/dL (32.0-36.0); Mean Corpuscular Hemoglobin 32.3 pg (27.0-31.0); Mean Corpuscular Volume 91.2 fl (78.0-98.0); Mean Platelet Volume 7.7 fL (7.4-10.4); Platelet Count 240 10x3/uL (130-400); RBC Distribution Width 11.8 % (11.5-14.5); Red Blood Cell (RBC) Count 3.97 mill/uL (4.20-5.40); White Blood Cell (WBC) Count 8.3 10x3/uL (4.8-10.8)
[2022-04-04 17:25] LABS: ALT (SGPT) 19 U/L (8-55); AST (SGOT) 14 U/L (5-34); Albumin 3.7 g/dL (3.5-5.0); Alkaline Phosphatase 38 U/L (40-110); Anion Gap 13 mmol/L (10-20); BUN (Urea Nitrogen) 10 mg/dL (7.0-18.7); Bilirubin, Total 0.3 mg/dL (0.2-1.2); Calc. Creatinine Clearance 0 mL/min (70-130); Calcium 8.5 mg/dL (7.8-10.44); Carbon Dioxide 25 mmol/L (22-29); Chloride 102 mmol/L (98-107); Estimated GFR 107; Globulin 2.2 g/dL (2.4-3.5); Glucose 332 mg/dL (70-105); Potassium 3.8 mmol/L (3.5-5.1); Protein, Total 5.9 g/dL (6.0-8.3); Sodium 136 mmol/L (136-145)
== END 2022-04-04 18:43 ==
LOC: ERS 16:17
DX: R53.1 Weakness (principal); I10 Essential (primary) hypertension; E11.9 Type 2 diabetes mellitus without complications; Z79.899 Other long term (current) drug therapy; Z79.84 Long term (current) use of oral hypoglycemic drugs; Z79.82 Long term (current) use of aspirin
CPT/HCPCS: 36415; 36416; 70450; 80053; 84484; 85025; 93005

== ENCOUNTER 2022-06-16 22:21 | Emergency (ER) | payer OTHER ==
[2022-06-16] MEDS ORDERED: Acetaminophen 500 MG TAB ONE (22:33)
[2022-06-16 22:53] LABS: Bacteria/HPF None Seen HPF (None Seen); Bilirubin Negative (Negative); Blood, Urine Trace (Negative); Clarity Clear (Clear); Glucose, Urine (Dipstick) Greater than 1000 mg/dL (Negative); Ketone, Urine Negative (Negative); Leukocyte Negative Leu/uL (Negative); Nitrite Negative (Negative); Protein, Urine (Dipstick) Negative (Neg-Trace); RBC/HPF 0-3 HPF (0-3); Specific Gravity, Urine 1.032 (1.002-1.036); Squamous Epithelial 0-3 HPF (0-3); Urobilinogen Normal mg/dL (Less than 2); WBC/HPF 0-3 HPF (0-3); pH, Urine 5.5 (5.0-9.0)
[2022-06-16 22:54] LABS: Pregnancy Test - Urine (BHCG) Negative (Negative); Pregu Control Background? CLEAR/WHITE (CLR/WHITE); Pregu Control Bar Appear? YES (CONTROL BAR); Specific Gravity 1.032 (1.002-1.036)
[2022-06-16] MEDS ORDERED: Ketorolac Tromethamine 30 MG/ML VIAL ONE (23:08)
== END 2022-06-16 23:29 | disposition home or self-care (01) ==
LOC: ERS 22:21
DX: M54.42 Lumbago with sciatica, left side (principal); E11.9 Type 2 diabetes mellitus without complications; I10 Essential (primary) hypertension; Z79.84 Long term (current) use of oral hypoglycemic drugs; Z79.899 Other long term (current) drug therapy; Z79.82 Long term (current) use of aspirin
CPT/HCPCS: 81003; 81015; 81025; 96372; 99283; J1885

== ENCOUNTER 2022-08-09 21:48 | Emergency (ER) | payer OTHER ==
[2022-08-09 22:50] LABS: #Eosinphils 0.1 thou/uL (0.0-0.7); #Lymphocytes 3.7 thou/uL (1.20-3.40); #Monocytes 0.6 thou/uL (0.11-0.59); #Neutrophils 4.2 thou/uL (1.40-6.50); %Basophils 0.5 % (0.0-1.0); %Eosinophils 1.2 % (0.0-10.0); %Lymphocytes 43.1 % (21.0-51.0); %Monocytes 6.9 % (0.0-10.0); %Neutrophils 48.2 % (42.0-75.0); Hemoglobin 14.8 g/dL (12.0-16.0); Mean Corpuscular HGB CONC 36.1 g/dL (32.0-36.0); Mean Corpuscular Hemoglobin 32.7 pg (27.0-31.0); Mean Corpuscular Volume 90.5 fl (78.0-98.0); Mean Platelet Volume 7.9 fL (7.4-10.4); Platelet Count 248 10x3/uL (130-400); Red Blood Cell (RBC) Count 4.54 mill/uL (4.20-5.40); White Blood Cell (WBC) Count 8.6 10x3/uL (4.8-10.8)
[2022-08-09] MEDS ORDERED: Aspirin 325 MG TAB ONE ×2 (23:12→23:25)
[2022-08-09] MEDS ORDERED: Ondansetron PF 4 MG/2 ML Vial ONE ×3 (23:12→23:46)
[2022-08-09 23:21] LABS: ALT (SGPT) 19 U/L (8-55); AST (SGOT) 17 U/L (5-34); Albumin 3.9 g/dL (3.5-5.0); Alkaline Phosphatase 49 U/L (40-110); Anion Gap 18 mmol/L (10-20); BUN (Urea Nitrogen) 13 mg/dL (7.0-18.7); Bilirubin, Total 0.3 mg/dL (0.2-1.2); Calc. Creatinine Clearance 0 mL/min (70-130); Calcium 8.9 mg/dL (7.8-10.44); Carbon Dioxide 20 mmol/L (22-29); Chloride 102 mmol/L (98-107); Estimated GFR 93; Globulin 2.8 g/dL (2.4-3.5); Glucose 315 mg/dL (70-105); Potassium 4.2 mmol/L (3.5-5.1); Protein, Total 6.7 g/dL (6.0-8.3); Sodium 136 mmol/L (136-145)
== END 2022-08-10 00:38 | disposition home or self-care (01) ==
LOC: ERS 21:48
DX: R07.9 Chest pain, unspecified (principal); F41.9 Anxiety disorder, unspecified; E78.5 Hyperlipidemia, unspecified; I10 Essential (primary) hypertension; E11.9 Type 2 diabetes mellitus without complications; I25.10 Atherosclerotic heart disease of native coronary artery without angina pectoris; Z79.82 Long term (current) use of aspirin; Z79.84 Long term (current) use of oral hypoglycemic drugs
CPT/HCPCS: 71045; 80053; 84484; 85025; 93005; 94760; J2405

== ENCOUNTER 2022-08-10 19:16 | Emergency (ER) | payer OTHER ==
[~2022-08-10 19:16] MED LIST changes: -Iopamidol-370 76% 500 ML 1 ML ONE; +Iopamidol-370 76% 500 ML MDV (1 ML CHARGE) ONE
[2022-08-10 19:37] LABS: #Eosinphils 0.1 thou/uL (0.0-0.7); #Lymphocytes 2.8 thou/uL (1.20-3.40); #Monocytes 0.4 thou/uL (0.11-0.59); #Neutrophils 4.9 thou/uL (1.40-6.50); %Basophils 0.2 % (0.0-1.0); %Eosinophils 0.9 % (0.0-10.0); %Lymphocytes 34.3 % (21.0-51.0); %Monocytes 4.9 % (0.0-10.0); %Neutrophils 59.7 % (42.0-75.0); Hemoglobin 15.2 g/dL (12.0-16.0); Mean Corpuscular HGB CONC 33.4 g/dL (32.0-36.0); Mean Corpuscular Hemoglobin 30.8 pg (27.0-31.0); Mean Corpuscular Volume 92.4 fl (78.0-98.0); Mean Platelet Volume 7.9 fL (7.4-10.4); Platelet Count 282 10x3/uL (130-400); RBC Distribution Width 12.1 % (11.5-14.5); Red Blood Cell (RBC) Count 4.93 mill/uL (4.20-5.40); White Blood Cell (WBC) Count 8.2 10x3/uL (4.8-10.8)
[2022-08-10 19:53] LABS: INR-International Normal Ratio 0.9; PTT 24.4 sec (22.9-36.1); Prothrombin Time 12.6 sec (12.0-14.7)
[2022-08-10 20:01] LABS: ALT (SGPT) 21 U/L (8-55); AST (SGOT) 17 U/L (5-34); Albumin 4.1 g/dL (3.5-5.0); Alkaline Phosphatase 48 U/L (40-110); Anion Gap 15 mmol/L (10-20); BUN (Urea Nitrogen) 14 mg/dL (7.0-18.7); Bilirubin, Total 0.4 mg/dL (0.2-1.2); CK (CPK) 188 U/L (29-168); Calc. Creatinine Clearance 0 mL/min (70-130); Carbon Dioxide 24 mmol/L (22-29); Chloride 100 mmol/L (98-107); Estimated GFR 80; Globulin 3.1 g/dL (2.4-3.5); Glucose 373 mg/dL (70-105); Potassium 3.9 mmol/L (3.5-5.1); Protein, Total 7.2 g/dL (6.0-8.3); Sodium 135 mmol/L (136-145)
[2022-08-10] MEDS ORDERED: Insulin Regular 300 UNITS/3 ML VIAL ONE (21:01)
== END 2022-08-10 22:17 | disposition home or self-care (01) ==
LOC: ERS 19:16
DX: E11.65 Type 2 diabetes mellitus with hyperglycemia (principal); E11.40 Type 2 diabetes mellitus with diabetic neuropathy, unspecified; E78.5 Hyperlipidemia, unspecified; I10 Essential (primary) hypertension; I25.10 Atherosclerotic heart disease of native coronary artery without angina pectoris; Z79.82 Long term (current) use of aspirin; Z79.84 Long term (current) use of oral hypoglycemic drugs; Z79.899 Other long term (current) drug therapy
CPT/HCPCS: 36415; 36416; 70450; 70496; 70498; 71045; 80053; 82550; 83605; 84484; 85025; 85610; 85730; 93005; 94760; 96361; 96374; J1815; J2405; Q9967

== ENCOUNTER → 2022-12-10 | Day surgery (SDC) | payer OTHER ==
[~2022-12-10] MED LIST changes: -Iopamidol-370 76% 500 ML MDV (1 ML CHARGE) ONE; +Lidocaine 1% PF 5 ML VIAL ONE; +Sodium Bicarbonate 2.5 MEQ/5 ML VIAL ONE
== END ==
LOC: ULT 12:38
PROVIDERS: ATTEND Student in an Organized Health Care Education/Training Program
DX: E04.1 Nontoxic single thyroid nodule (principal); I10 Essential (primary) hypertension; Z79.82 Long term (current) use of aspirin; Z79.899 Other long term (current) drug therapy
CPT/HCPCS: 10005; 88173

== ENCOUNTER 2023-03-27 16:16 | Emergency (ER) | payer OTHER, SELFPAY ==
[2023-03-27 17:11] LABS: SARS-CoV-2 NAA Rapid Test Not Detected (NotDetected)
[2023-03-27] MEDS ORDERED: Dexamethasone 10 MG/ML VIAL ONE (18:44)
== END 2023-03-27 19:00 | disposition home or self-care (01) ==
LOC: ERS 16:16
DX: J06.9 Acute upper respiratory infection, unspecified (principal); I10 Essential (primary) hypertension; E11.9 Type 2 diabetes mellitus without complications; I25.10 Atherosclerotic heart disease of native coronary artery without angina pectoris; Z79.84 Long term (current) use of oral hypoglycemic drugs; Z79.899 Other long term (current) drug therapy; Z20.822 Contact with and (suspected) exposure to COVID-19; Z79.82 Long term (current) use of aspirin
CPT/HCPCS: 96372; 99283; J1100

== ENCOUNTER 2023-04-04 03:45 | Observation (INO) | payer SELFPAY ==
[2023-04-04 05:12] LABS: #Eosinphils 0.1 thou/uL (0.0-0.7); #Monocytes 0.7 thou/uL (0.11-0.59); #Neutrophils 8.2 thou/uL (1.40-6.50); %Basophils 0.2 % (0.0-1.0); %Eosinophils 0.6 % (0.0-10.0); %Lymphocytes 23.2 % (21.0-51.0); %Monocytes 5.9 % (0.0-10.0); %Neutrophils 69.5 % (42.0-75.0); Hematocrit 39.8 % (36.0-47.0); Hemoglobin 14.2 g/dL (12.0-16.0); Mean Corpuscular HGB CONC 35.7 g/dL (32.0-36.0); Mean Corpuscular Hemoglobin 30.7 pg (27.0-31.0); Mean Corpuscular Volume 86.1 fl (78.0-98.0); Mean Platelet Volume 9.9 fL (7.4-10.4); Platelet Count 305 10x3/uL (130-400); RBC Distribution Width 12.6 % (11.5-14.5); Red Blood Cell (RBC) Count 4.62 mill/uL (4.20-5.40); White Blood Cell (WBC) Count 11.8 10x3/uL (4.8-10.8)
[2023-04-04 05:38] LABS: Troponin I 0.016 ng/mL (< 0.028)
[2023-04-04 05:40] LABS: ALT (SGPT) 20 U/L (8-55); AST (SGOT) 22 U/L (5-34); Albumin 4.2 g/dL (3.5-5.0); Alkaline Phosphatase 45 U/L (40-110); Anion Gap 17 mmol/L (10-20); BUN (Urea Nitrogen) 13 mg/dL (7.0-18.7); Bilirubin, Total 0.4 mg/dL (0.2-1.2); Calc. Creatinine Clearance 0 mL/min (70-130); Calcium 8.8 mg/dL (7.8-10.44); Carbon Dioxide 20 mmol/L (22-29); Chloride 104 mmol/L (98-107); Estimated GFR 76; Globulin 2.7 g/dL (2.4-3.5); Glucose 290 mg/dL (70-105); Lipase 44 U/L (8-78); Potassium 3.6 mmol/L (3.5-5.1); Protein, Total 6.9 g/dL (6.0-8.3); Sodium 137 mmol/L (136-145)
[2023-04-04] MEDS ORDERED: Ketorolac Tromethamine 30 MG/ML VIAL ONE (06:05)
[2023-04-04 09:00] LABS: Troponin I 0.035 ng/mL (< 0.028)
[2023-04-04] MEDS ORDERED: Dextrose 5% in Water 1,000 ML IV PRN (09:53)
[2023-04-04] MEDS ORDERED: Acetaminophen 325 MG TAB PO PRN (09:53)
[2023-04-04] MEDS ORDERED: HumaLOG 300 UNITS/3 ML VIAL SC PRN ×4 (09:53→10:18)
[2023-04-04] MEDS ORDERED: Glucagon 1 MG/ML KIT IM PRN (09:53)
[2023-04-04] MEDS ORDERED: Dextrose 50% Abboject 50 ML SYRINGE SLOW IVP PRN (09:53)
[2023-04-04] MEDS ORDERED: Aspirin Chewable 81 MG TAB ONE (10:05)
[2023-04-04] MEDS ORDERED: Non-Formulary Item 1 EACH (Semaglutide [Ozempic] 2 MG/0.75 ML Pen.Injctr) SQ SCH (10:15)
[2023-04-04 10:40] LABS: Acetaminophen Less than 10 mcg/mL (10.0-30.0); Alcohol 11.6 mg/dL (Less than 10); Salicylate Less than 8.0 mg/dL (15.0-30.0)
[2023-04-04 11:50] VITALS: BP 136/74; TEMP 98.5
[2023-04-04 12:12] VITALS: BMI 36.1
[2023-04-04] MEDS ORDERED: FLU VACC QS2023-24(6MOS UP)/PF 60 MCG/0.5 ML SYRINGE IM ONE (12:30)
[2023-04-04 13:01] LABS: Troponin I 0.034 ng/mL (< 0.028)
[2023-04-04 13:45] LABS: BHCG - Serum Negative (NEGATIVE); Pregs Control Background? CLEAR/WHITE (CLR/WHITE); Pregs Control Bar Appear? YES (CONTROL BAR)
[2023-04-04 14:20] LABS: Amphetamine Detected (NotDetected); Barbiturates Screen Not Detected (NotDetected); Benzodiazepine Screen Not Detected (NotDetected); Cocaine Metabolite Screen Not Detected (NotDetected); Methadone Not Detected (NotDetected); Methamphetamine Detected (NotDetected); Opiate Screen Not Detected (NotDetected); Oxycodone Screen Not Detected (NotDetected); Phencyclidine (PCP) Not Detected (NotDetected); THC/Cannabinoid Screen Detected (NotDetected); Tricyclic Screen Not Detected (NotDetected)
[2023-04-04] MEDS ORDERED: Regadenoson 0.4 MG/5 ML SYRINGE ONE (14:38)
[2023-04-04 15:48] LABS: Troponin I 0.026 ng/mL (< 0.028)
[2023-04-04] MEDS ORDERED: Rosuvastatin 20 MG TAB PO SCH (21:00)
[2023-04-04] MEDS ORDERED: metFORMIN XR 500 MG ER.TAB PO SCH (21:00)
[2023-04-05] MEDS ORDERED: Insulin Glargine 30 UNITS/0.3 ML VIAL SC SCH (09:00)
[2023-04-05] MEDS ORDERED: HYDROCHLOROTHIAZIDE PO SCH (09:00)
[2023-04-05] MEDS ORDERED: Ezetimibe 10 MG TAB PO SCH (09:00)
[2023-04-05] MEDS ORDERED: Lisinopril 20 MG TAB PO SCH (09:00)
[2023-04-05] MEDS ORDERED: Amlodipine 5 MG TAB PO SCH (09:00)
[2023-04-05] MEDS ORDERED: Aspirin 81 mg Enteric Coated Tablet PO SCH (09:00)
[2023-04-05] MEDS ORDERED: Hydrochlorothiazide 25 MG TAB PO SCH (09:00)
[2023-04-05] MEDS ORDERED: LISINOPRIL PO SCH (09:00)
== END 2023-04-04 16:38 | disposition home or self-care (01) ==
LOC: ERS 03:45 → 2NO 09:36
PROVIDERS: ADMIT Student in an Organized Health Care Education/Training Program; ATTEND Student in an Organized Health Care Education/Training Program
DX: R06.02 Shortness of breath (principal); I10 Essential (primary) hypertension; E11.9 Type 2 diabetes mellitus without complications; E78.5 Hyperlipidemia, unspecified; I21.4 Non-ST elevation (NSTEMI) myocardial infarction; I20.9 Angina pectoris, unspecified; R07.89 Other chest pain; I25.10 Atherosclerotic heart disease of native coronary artery without angina pectoris; Z95.5 Presence of coronary angioplasty implant and graft; Z88.2 Allergy status to sulfonamides; Z79.82 Long term (current) use of aspirin; Z79.4 Long term (current) use of insulin; Z79.899 Other long term (current) drug therapy; Z90.49 Acquired absence of other specified parts of digestive tract; Z87.891 Personal history of nicotine dependence; F10.120 Alcohol abuse with intoxication, uncomplicated
CPT/HCPCS: 36415; 71045; 78452; 80053; 80306; 80307; 83690; 84443; 84484; 84703; 85025; 85379; 93005; 93017; A9502; G0378; J1885; J2785

== ENCOUNTER 2023-04-12 11:31 | Emergency (ER) | payer OTHER, SELFPAY ==
[2023-04-12] MEDS ORDERED: Acetaminophen 500 MG TAB ONE (12:48)
[2023-04-12 13:47] LABS: SARS-CoV-2 NAA Rapid Test Not Detected (NotDetected)
== END 2023-04-12 15:12 | disposition home or self-care (01) ==
LOC: ERS 11:31
DX: J18.9 Pneumonia, unspecified organism (principal); I10 Essential (primary) hypertension; E11.9 Type 2 diabetes mellitus without complications
CPT/HCPCS: 71045; 87804; U0002

== ENCOUNTER 2023-11-15 16:48 | Inpatient (IN) | payer OTHER ==
[2023-11-15 17:54] LABS: #Basophils Less than 0.03 10x3/uL (0.0-0.2); %Basophils 0.2 % (0.0-1.0); %Eosinophils 1.2 % (0.0-10.0); %Lymphocytes 32.7 % (21.0-51.0); %Monocytes 5.4 % (0.0-10.0); %Neutrophils 60.1 % (42.0-75.0); Hematocrit 40.2 % (36.0-47.0); Hemoglobin 14.1 g/dL (12.0-16.0); Mean Corpuscular HGB CONC 35.1 g/dL (32.0-36.0); Mean Corpuscular Hemoglobin 30.7 pg (27.0-31.0); Mean Corpuscular Volume 87.4 fL (78.0-98.0); Mean Platelet Volume 9.9 fL (7.4-10.4); Platelet Count 285 10x3/uL (130-400); RBC Distribution Width 12.6 % (11.5-14.5)
[2023-11-15 18:23] LABS: ALT (SGPT) 20 U/L (8-55); AST (SGOT) 17 U/L (5-34); Albumin 3.7 g/dL (3.5-5.0); Alkaline Phosphatase 43 U/L (40-110); Anion Gap 16 mmol/L (10-20); BUN (Urea Nitrogen) 13 mg/dL (7.0-18.7); Bilirubin, Total 0.3 mg/dL (0.2-1.2); Calc. Creatinine Clearance 0 mL/min (70-130); Calcium 9.3 mg/dL (7.8-10.44); Carbon Dioxide 21 mmol/L (22-29); Chloride 103 mmol/L (98-107); Estimated GFR 99; Globulin 3.1 g/dL (2.4-3.5); Glucose 304 mg/dL (70-105); Potassium 3.8 mmol/L (3.5-5.1); Protein, Total 6.8 g/dL (6.0-8.3); Sodium 136 mmol/L (136-145)
[2023-11-15] MEDS ORDERED: Cefepime 2 GM VIAL ONE (20:09)
[2023-11-15] MEDS ORDERED: Sodium Chloride 0.9% 100 ML ONE (20:11)
[2023-11-15] MEDS ORDERED: Acetaminophen 500 MG TAB ONE (23:07)
[2023-11-15] MEDS ORDERED: Insulin Regular, Human 100 UNIT/ML 10 ML VIAL ONE (23:15)
[2023-11-16] MEDS ORDERED: Cefepime 2 GM VIAL ONE ×2 (09:14→23:48)
[2023-11-16] MEDS ORDERED: Sodium Chloride 0.9% 100 ML ONE ×2 (09:14→23:48)
[2023-11-16] MEDS ORDERED: VANCOMYCIN IVPB PRN (11:04)
[2023-11-16] MEDS ORDERED: Fluconazole 100 MG TAB ONE (17:04)
[2023-11-17 04:47] LABS: Vancomycin, Random 20.4 ug/mL (See Comment)
[2023-11-17] MEDS ORDERED: Sodium Chloride 0.9% 100 ML ONE ×2 (12:42→23:27)
[2023-11-17] MEDS ORDERED: Cefepime 2 GM VIAL ONE ×2 (12:42→23:27)
[2023-11-17] MEDS ORDERED: Acetaminophen 500 MG TAB ONE (19:33)
[2023-11-18] MEDS ORDERED: Sodium Chloride 0.9% 100 ML ONE (07:48)
[2023-11-18] MEDS ORDERED: Cefepime 2 GM VIAL ONE (07:48)
[2023-11-18 08:40] LABS: Vancomycin, Trough 10.1 ug/mL
[2023-11-18] MEDS ORDERED: Fluconazole 100 MG TAB PO SCH (10:00)
[2023-11-18] MEDS ORDERED: Dextrose 5% in Water 1,000 ML IV PRN (11:17)
[2023-11-18] MEDS ORDERED: Dextrose 50% Abboject 50 ML SYRINGE SLOW IVP PRN (11:17)
[2023-11-18] MEDS ORDERED: Glucagon 1 MG/ML KIT IM PRN (11:17)
[2023-11-18] MEDS ORDERED: HumaLOG 300 UNITS/3 ML VIAL SC PRN ×2 (11:17)
[2023-11-18] MEDS ORDERED: hydrALAZINE 20 MG/ML VIAL ONE (11:31)
[2023-11-18] MEDS ORDERED: hydrALAZINE 20 MG/ML VIAL SLOW IVP PRN (12:35)
[2023-11-18] MEDS ORDERED: Ondansetron ODT 4 MG TAB PO PRN (12:43)
[2023-11-18] MEDS ORDERED: Ondansetron PF 4 MG/2 ML Vial IVP PRN (12:43)
[2023-11-18] MEDS: Clotrimazole 2% 3 Day Vag Cr 22.2 GM TUBE FS SCH (12:51)
[2023-11-18] MEDS: Vancomycin (BATCH) 1.5 GM in Premix 1 BAG IVPB SCH (12:51)
[2023-11-18 12:59] VITALS: BMI 36.5
[2023-11-18 13:14] LABS: #Basophils 0.03 10x3/uL (0.0-0.2); %Basophils 0.4 % (0.0-1.0); %Eosinophils 2.8 % (0.0-10.0); %Lymphocytes 29.6 % (21.0-51.0); %Monocytes 6.3 % (0.0-10.0); %Neutrophils 60.6 % (42.0-75.0); Hematocrit 40.2 % (36.0-47.0); Hemoglobin 13.9 g/dL (12.0-16.0); Mean Corpuscular HGB CONC 34.6 g/dL (32.0-36.0); Mean Corpuscular Hemoglobin 30.2 pg (27.0-31.0); Mean Corpuscular Volume 87.4 fL (78.0-98.0); Mean Platelet Volume 9.8 fL (7.4-10.4); Platelet Count 238 10x3/uL (130-400); RBC Distribution Width 12.8 % (11.5-14.5)
[2023-11-18 13:35] LABS: Anion Gap 14 mmol/L (10-20); BUN (Urea Nitrogen) 10 mg/dL (7.0-18.7); CRP,High Sensitivity (Inhouse) 0.24 mg/dL (< or = 0.5); Calc. Creatinine Clearance 176 mL/min (70-130); Calcium 9.3 mg/dL (7.8-10.44); Carbon Dioxide 24 mmol/L (22-29); Chloride 105 mmol/L (98-107); Estimated GFR 111; Glucose 235 mg/dL (70-105); Magnesium 1.7 mg/dL (1.6-2.6); Potassium 4.2 mmol/L (3.5-5.1); Sodium 139 mmol/L (136-145)
[2023-11-18 13:41] LABS: Troponin I Less than 0.010 ng/mL (< 0.028)
[2023-11-18] MEDS: Vancomycin (BATCH) 2 GM in Premix 1 BAG IVPB SCH (14:10)
[2023-11-18] MEDS: Acetaminophen 325 MG TAB PO PRN (14:31)
[2023-11-18] MEDS: Lidocaine 2% Viscous Solution 20 ML, Aluminum & Magnesium Hydroxide 30 ML, Donnatal Eli... SSW SCH (14:31)
[2023-11-18] MEDS: Insulin Lispro 100 UNIT/ML 10 ML VIAL SC PRN ×2 (17:15→20:44)
[2023-11-18] MEDS: Cefepime 2 GM in Sodium Chloride 0.9% 100 ML IVPB SCH (18:22)
[2023-11-18] MEDS: Insulin Glargine 30 UNITS/0.3 ML VIAL SC SCH (20:43)
[2023-11-18] MEDS: Rosuvastatin 20 MG TAB PO SCH (20:43)
[2023-11-18] MEDS ORDERED: Non-Formulary Item 1 EACH (Rosuvastatin Calcium [Crestor] 40 MG Tablet) PO SCH (21:00)
[2023-11-19] MEDS: Vancomycin (BATCH) 1.5 GM/300 ML BAG ONE (00:24)
[2023-11-19] MEDS: Vancomycin (BATCH) 1.5 GM in Premix 1 BAG IVPB SCH (00:25)
[2023-11-19 05:11] LABS: #Basophils 0.03 10x3/uL (0.0-0.2); %Basophils 0.3 % (0.0-1.0); %Eosinophils 2.5 % (0.0-10.0); %Lymphocytes 31.5 % (21.0-51.0); %Monocytes 7.2 % (0.0-10.0); %Neutrophils 58.2 % (42.0-75.0); Hematocrit 36.6 % (36.0-47.0); Hemoglobin 12.7 g/dL (12.0-16.0); Mean Corpuscular HGB CONC 34.7 g/dL (32.0-36.0); Mean Corpuscular Hemoglobin 30.4 pg (27.0-31.0); Mean Corpuscular Volume 87.6 fL (78.0-98.0); Platelet Count 212 10x3/uL (130-400); RBC Distribution Width 12.7 % (11.5-14.5); Red Blood Cell (RBC) Count 4.18 mill/uL (4.20-5.40)
[2023-11-19 05:23] LABS: Anion Gap 13 mmol/L (10-20); BUN (Urea Nitrogen) 15 mg/dL (7.0-18.7); Calc. Creatinine Clearance 172 mL/min (70-130); Calcium 8.8 mg/dL (7.8-10.44); Carbon Dioxide 24 mmol/L (22-29); Chloride 104 mmol/L (98-107); Estimated GFR 108; Glucose 248 mg/dL (70-105); Potassium 3.9 mmol/L (3.5-5.1); Sodium 137 mmol/L (136-145)
[2023-11-19 06:04] LABS: Vancomycin, Random 17.8 ug/mL (See Comment)
[2023-11-19] MEDS: Hydrochlorothiazide 25 MG TAB PO SCH (08:27)
[2023-11-19] MEDS: Lisinopril 20 MG TAB PO SCH (08:27)
[2023-11-19] MEDS: Amlodipine 10 MG TAB PO SCH (08:27)
[2023-11-19] MEDS: Aspirin 81 mg Enteric Coated Tablet PO SCH (08:27)
[2023-11-19] MEDS ORDERED: LISINOPRIL PO SCH (09:00)
[2023-11-19] MEDS ORDERED: Amlodipine 5 MG TAB PO SCH ×2 (09:00)
[2023-11-19] MEDS ORDERED: HYDROCHLOROTHIAZIDE PO SCH (09:00)
[2023-11-19] MEDS: Magnesium Oxide 250 MG TAB PO SCH (09:36)
[2023-11-19] MEDS ORDERED: Lidocaine 1% PF 5 ML VIAL ONE (10:05)
[2023-11-19] MEDS ORDERED: Sodium Bicarbonate 2.5 MEQ/5 ML SDV ONE (10:05)
[2023-11-19] MEDS: Fluconazole 100 MG TAB PO SCH (11:25)
[2023-11-19 12:24] VITALS: BMI 36.5
[2023-11-19] MEDS: metFORMIN XR 500 MG ER.TAB PO SCH (16:12)
[2023-11-19] MEDS: Insulin Glargine 30 UNITS/0.3 ML VIAL SC SCH (20:34)
[2023-11-20 07:12] LABS: #Basophils 0.03 10x3/uL (0.0-0.2); %Basophils 0.4 % (0.0-1.0); %Eosinophils 2.8 % (0.0-10.0); %Lymphocytes 27.8 % (21.0-51.0); %Monocytes 7.2 % (0.0-10.0); %Neutrophils 61.3 % (42.0-75.0); Hematocrit 39.1 % (36.0-47.0); Hemoglobin 13.3 g/dL (12.0-16.0); Mean Corpuscular Volume 88.1 fL (78.0-98.0); Mean Platelet Volume 9.9 fL (7.4-10.4); Platelet Count 221 10x3/uL (130-400); Red Blood Cell (RBC) Count 4.44 mill/uL (4.20-5.40)
[2023-11-20 07:54] LABS: Anion Gap 13 mmol/L (10-20); BUN (Urea Nitrogen) 14 mg/dL (7.0-18.7); Calc. Creatinine Clearance 182 mL/min (70-130); Calcium 8.6 mg/dL (7.8-10.44); Carbon Dioxide 23 mmol/L (22-29); Chloride 104 mmol/L (98-107); Estimated GFR 112; Glucose 232 mg/dL (70-105); Potassium 4.1 mmol/L (3.5-5.1); Sodium 136 mmol/L (136-145)
[2023-11-20] MEDS: Insulin Glargine 30 UNITS/0.3 ML VIAL SC SCH (21:05)
[2023-11-21 06:01] LABS: #Basophils Less than 0.03 10x3/uL (0.0-0.2); %Basophils 0.2 % (0.0-1.0); %Monocytes 5.6 % (0.0-10.0); %Neutrophils 55.8 % (42.0-75.0); Hematocrit 38.8 % (36.0-47.0); Hemoglobin 13.3 g/dL (12.0-16.0); Mean Corpuscular HGB CONC 34.3 g/dL (32.0-36.0); Mean Corpuscular Hemoglobin 30.6 pg (27.0-31.0); Mean Corpuscular Volume 89.4 fL (78.0-98.0); Platelet Count 236 10x3/uL (130-400); RBC Distribution Width 12.9 % (11.5-14.5); Red Blood Cell (RBC) Count 4.34 mill/uL (4.20-5.40)
[2023-11-21 06:39] LABS: Anion Gap 13 mmol/L (10-20); BUN (Urea Nitrogen) 9 mg/dL (7.0-18.7); Calc. Creatinine Clearance 202 mL/min (70-130); Calcium 8.8 mg/dL (7.8-10.44); Carbon Dioxide 23 mmol/L (22-29); Chloride 104 mmol/L (98-107); Estimated GFR 115; Glucose 153 mg/dL (70-105); Potassium 3.8 mmol/L (3.5-5.1); Sodium 136 mmol/L (136-145); Vancomycin, Random 23.3 ug/mL (See Comment)
[2023-11-21] MEDS: Cefepime 2 GM in Sodium Chloride 0.9% 100 ML IVPB SCH (08:46)
[2023-11-21] MEDS: Vancomycin (BATCH) 1.5 GM/300 ML BAG ONE (09:57)
[2023-11-22 00:41] VITALS: TEMP 98.2
[2023-11-22] MEDS: Cefepime 2 GM in Sodium Chloride 0.9% 100 ML IVPB SCH (05:34)
[2023-11-22 05:53] LABS: #Basophils Less than 0.03 10x3/uL (0.0-0.2); %Basophils 0.3 % (0.0-1.0); %Eosinophils 3.8 % (0.0-10.0); %Lymphocytes 36.2 % (21.0-51.0); %Monocytes 8.3 % (0.0-10.0); Hematocrit 35.8 % (36.0-47.0); Hemoglobin 12.4 g/dL (12.0-16.0); Mean Corpuscular HGB CONC 34.6 g/dL (32.0-36.0); Mean Corpuscular Hemoglobin 30.9 pg (27.0-31.0); Mean Corpuscular Volume 89.3 fL (78.0-98.0); Mean Platelet Volume 9.8 fL (7.4-10.4); Platelet Count 208 10x3/uL (130-400); RBC Distribution Width 12.6 % (11.5-14.5); Red Blood Cell (RBC) Count 4.01 mill/uL (4.20-5.40)
[2023-11-22 06:09] LABS: Anion Gap 13 mmol/L (10-20); BUN (Urea Nitrogen) 12 mg/dL (7.0-18.7); Calc. Creatinine Clearance 199 mL/min (70-130); Calcium 8.5 mg/dL (7.8-10.44); Carbon Dioxide 22 mmol/L (22-29); Chloride 105 mmol/L (98-107); Estimated GFR 115; Glucose 117 mg/dL (70-105); Potassium 3.6 mmol/L (3.5-5.1); Sodium 136 mmol/L (136-145)
[2023-11-22 07:41] VITALS: BP 156/103
[2023-11-22] MEDS: DAPTOmycin 500 MG VIAL SLOW IVP SCH (11:09)
[2023-11-22] MEDS: Insulin Glargine 30 UNITS/0.3 ML VIAL SC SCH (13:00)
[2023-11-22] MEDS: DAPTOmycin 500 MG in Sodium Chloride 0.9% 50 ML IVPB SCH (13:10)
[2023-11-22] MEDS: Potassium Chloride 20 MEQ TAB PO SCH (14:34)
[2023-11-22] MEDS ORDERED: Lisinopril 20 MG TAB PO SCH (21:00)
[2023-11-22] MEDS ORDERED: Insulin Glargine 30 UNITS/0.3 ML VIAL SC SCH (21:00)
== END 2023-11-22 16:14 | disposition home or self-care (01) | DRG 638 ==
LOC: ERS 16:48 → T4-A 11-18 12:34 → OBSVTOIN 11-19 13:48
PROVIDERS: ADMIT Hospitalist; ATTEND Hospitalist
PROC: 02HV33Z Insertion of Infusion Device into Superior Vena Cava, Percutaneous Approach (ICD-10-PCS; principal; 2023-11-19)
PROC: B5181ZA Fluoroscopy of Superior Vena Cava using Low Osmolar Contrast, Guidance (ICD-10-PCS; 2023-11-19)
DX: E11.69 Type 2 diabetes mellitus with other specified complication (principal); M86.9 Osteomyelitis, unspecified; I10 Essential (primary) hypertension; E78.5 Hyperlipidemia, unspecified; Z98.51 Tubal ligation status; E11.65 Type 2 diabetes mellitus with hyperglycemia; Z90.49 Acquired absence of other specified parts of digestive tract; Z98.890 Other specified postprocedural states; B37.31 Acute candidiasis of vulva and vagina; Z88.2 Allergy status to sulfonamides; Z79.899 Other long term (current) drug therapy; Z79.4 Long term (current) use of insulin; Z79.82 Long term (current) use of aspirin; Z79.84 Long term (current) use of oral hypoglycemic drugs; I25.10 Atherosclerotic heart disease of native coronary artery without angina pectoris; Z86.73 Personal history of transient ischemic attack (TIA), and cerebral infarction without residual deficits; Z79.2 Long term (current) use of antibiotics
CPT/HCPCS: 36415; 36416; 36569; 76937; 77001; 80048; 80053; 80202; 82550; 83605; 83735; 84484; 85025; 86141; 87040; 93005; 93010; 96361; 96365; 96366; 96367; 96374; 96375; 96376; 97139; C1751; G0378; J0360; J0692; J0878; J1815; J3370; J3490

== ENCOUNTER 2024-12-08 13:14 | Outpatient (CLI) | payer BC | END 2024-12-08 13:15 | disposition home or self-care (01) | LOC: ULT 13:14 | PROVIDERS: ATTEND Family Medicine | DX: Z12.31 Encounter for screening mammogram for malignant neoplasm of breast (principal); E04.2 Nontoxic multinodular goiter | CPT/HCPCS: 76536; 77063; 77067 ==